=== PATIENT | female | born 1985 | race Caucasian/White ===

== ENCOUNTER 2016-07-03 10:37 | Emergency (ER) | payer MEDICAID ==
[2016-07-03 10:42] VITALS: O2SAT 99
--- NOTE | 2016-07-03 10:55 | CPEKG ---
Heart Rate: 111 RR Interval: 541 P-R Interval: 132 QRSD Interval: 78 QT Interval: 340 QTC Interval: 462 P [place]: 65 QRS [place]: 71 T Wave [place]: 18 EKG Severity - BORDERLINE ECG - EKG Impression: SINUS TACHYCARDIA EKG Impression: BORDERLINE Q WAVES IN INFERIOR LEADS EKG Impression: INFERIOR Q WAVES, PROBABLY NORMAL VARIATION Electronically Signed By: Finn Mcclain 03-Jul-2016 11:54:34
--- NOTE | 2016-07-03 11:13 | EDPHY ---
H & P Smoking Status: Former smoker Time Seen by Provider: 07/03/16 10:51 HPI/ROS: CHIEF COMPLAINT: Chest pain, shortness of breath HISTORY OF PRESENT ILLNESS: 30-year-old female presents to the emergency department by private vehicle complaining of left-sided chest pain that became more acutely worse in the last 24-48 hours. Patient states that she has had which she describes as more subtle pain in the left side of her chest for last few weeks intermittently. She feels progressively more short of breath and his especially winded when she tries to walk even just to the bathroom in her own home. She does describe pleuritic chest pain. She denies recent travel. No calf pain or swelling. She has never had this pain in the past. She does not smoke. She does not take control pills. Her last period ended last week. She does not believe that she is . She had a previous tubal ligation. She does smoke marijuana daily. REVIEW OF SYSTEMS: Constitutional: No fever, no chills. Eyes: No double or blurry vision. ENT: No sore throat. Respiratory: Shortness of breath. No cough or other URI symptoms. Cardiac: Left-sided chest pain as above Gastrointestinal: No abdominal pain, vomiting or diarrhea. Genitourinary: No dysuria. Musculoskeletal: No neck or back pain. Skin: No rashes. Neurological: No headache. (Italia Kinsey) Past Medical/Surgical History: Smokes marijuana daily (Italia Kinsey M) Social History: and lives in [place] (Italia Kinsey M) Physical Exam: General Appearance: Alert, no distress. 140/108, 99% on room air, heart rate 97 Eyes: Pupils equal and round. Extraocular motions are all intact. ENT: Mouth: Mucous membranes moist. Respiratory: No wheezing, rhonchi, or rales, lungs are clear to auscultation. Unable to reproduce pain with palpation left anterior aspect of the chest. No palpable crepitus or other bony abnormality. Cardiovascular: Regular rate and rhythm. Gastrointestinal: Abdomen is soft and nontender, no masses, no rebound or guarding, bowel sounds normal. Neurological: Alert and oriented x 3, cranial nerves II through XII grossly intact Skin: Warm and dry, no rashes. Musculoskeletal: Nontender to palpate along the cervical, thoracic or lumbar spine. Neck is supple. Extremities: Full range of motion and no peripheral edema. Psychiatric: Patient is oriented X 3, there is no agitation. (Italia Kinsey) Constitutional: Initial Vital Signs Temperature (C) 36.3 C 07/03/16 10:40 Heart Rate 97 07/03/16 10:40 Respiratory Rate 20 07/03/16 10:40 Blood Pressure 140/108 H 07/03/16 10:40 O2 Sat (%) 99 07/03/16 10:40 O2 Delivery Mode Room Air Allergies/Adverse Reactions: haloperidol [From Haldol] Allergy (Verified 07/03/16 10:40) Home Medications: Medication Instructions Recorded oxyCODONE/APAP 5/325 [Percocet 1 - 2 tab PO Q4-6PRN PRN #15 tab 07/03/16 5/325] Medical Decision Making - Diagnostics EKG Interpretation: EKG: Complete interpretation has been separately recorded in the [employer] archive. Summary impression: Sinus tachycardia, rate 111, S1Q3T3 pattern noted (Finn Mcclain) Imaging: Imaging Impressions Chest/Thorax CTA 07/03/16 11:17 Impression: 1. No evidence of pulmonary embolus using CT protocol. 2. Normal CT chest. These findings were discussed by telephone with Italia Kinsey PA-C at 1220 hrs. ED Course/Re-evaluation: 30-year-old female presents to the emergency department with left-sided chest pain and feeling short of breath. She is short of breath even with exertion. She feels that her symptoms have become acutely worse in the last 24-48 hours. I explained to the patient that I was very concerned about possible pulmonary embolism. I had explained the pros and cons of CT imaging of her chest including radiation exposure and the patient agrees with CT scan. CT pulmonary angiogram reveals no evidence of pulmonary embolism. Laboratory studies were all within normal limits including normal troponin. The patient was given oral ibuprofen since she thinks that she has an allergy to Toradol. She was also discharged home with small amount of Percocet for severe pain. She was encouraged to return if she developed worsening shortness of breath, chest pain especially with activity, or if she felt worse in any way. (Italia Kinsey) Differential Diagnosis: Chest pain including but not limited to myocardial ischemia, pulmonary embolus, chest wall pain, pleural inflammation and pulmonary infectious causes. Shortness of breath including but not limited to pulmonary infectious process, COPD, asthma, pulmonary embolus and congestive heart failure. (Italia Kinsey) - Data Points Laboratory Results: Laboratory Results 07/03/16 11:03 07/03/16 11:03 07/03/16 07/03/16 07/03/16 11:30 11:04 11:03 WBC RBC Hgb POC Hgb 17.7 gm/dL H gm/dL (12.3-15.9) Hct POC Hct 52 % H % (35.5-47.5) MCV MCH MCHC RDW Plt Count MPV Neut % (Auto) Lymph % (Auto) Stanton % (Auto) Eos % (Auto) Baso % (Auto) Nucleat RBC Rel Count Absolute Neuts (auto) Absolute Lymphs (auto) Absolute Monos (auto) Absolute Eos (auto) Absolute Basos (auto) Absolute Nucleated RBC Immature Gran % Immature Gran # D-Dimer < 0.27 ug/mLFEU ug/mLFEU (0.00-0.50) POC Sodium 141 mEq/L mEq/L (134-144) Sodium POC Potassium 5.1 mEq/L H mEq/L (3.3-5.0) Potassium POC Chloride 104 mEq/L mEq/L (96-108) Chloride Carbon Dioxide Anion Gap POC BUN 19 mg/dL mg/dL (7-23) BUN Creatinine POC Creatinine 0.7 mg/dL mg/dL (0.6-1.2) Estimated GFR Glucose POC Glucose 82 mg/dL mg/dL (70-100) Calcium Troponin I 0.021 ng/mL ng/mL (0-0.034) Beta HCG, Qual Specimen Hemolysis 07/03/16 07/03/16 07/03/16 11:03 11:03 11:03 WBC RBC Hgb POC Hgb Hct POC Hct MCV MCH MCHC RDW Plt Count MPV Neut % (Auto) Lymph % (Auto) Stanton % (Auto) Eos % (Auto) Baso % (Auto) Nucleat RBC Rel Count Absolute Neuts (auto) Absolute Lymphs (auto) Absolute Monos (auto) Absolute Eos (auto) Absolute Basos (auto) Absolute Nucleated RBC Immature Gran % Immature Gran # D-Dimer REJ POC Sodium Sodium 141 mEq/L mEq/L (134-144) POC Potassium Potassium 5.2 mEq/L mEq/L (3.5-5.2) POC Chloride Chloride 107 mEq/L mEq/L (97-110) Carbon Dioxide 25 mEq/l mEq/l (22-31) Anion Gap 9 mEq/L mEq/L (8-16) POC BUN BUN 16 mg/dL mg/dL (7-23) Creatinine 0.7 mg/dL mg/dL (0.6-1.0) POC Creatinine Estimated GFR > 60 Glucose 79 mg/dL mg/dL (70-100) POC Glucose Calcium 9.6 mg/dL mg/dL (8.5-10.4) Troponin I Beta HCG, Qual NEGATIVE Specimen Hemolysis 121 07/03/16 11:03 WBC 6.72 10^3/uL 10^3/uL (3.80-9.50) RBC 5.62 10^6/uL H 10^6/uL (4.18-5.33) Hgb 16.4 g/dL H g/dL (12.6-16.3) POC Hgb Hct 48.7 % H % (38.0-47.0) POC Hct MCV 86.7 fL fL (81.5-99.8) MCH 29.2 pg pg (27.9-34.1) MCHC 33.7 g/dL g/dL (32.4-36.7) RDW 12.9 % % (11.5-15.2) Plt Count 258 10^3/uL 10^3/uL (150-400) MPV 9.3 fL fL (8.7-11.7) Neut % (Auto) 49.7 % % (39.3-74.2) Lymph % (Auto) 42.7 % % (15.0-45.0) Stanton % (Auto) 5.4 % % (4.5-13.0) Eos % (Auto) 1.3 % % (0.6-7.6) Baso % (Auto) 0.6 % % (0.3-1.7) Nucleat RBC Rel Count 0.0 % % (0.0-0.2) Absolute Neuts (auto) 3.34 10^3/uL 10^3/uL (1.70-6.50) Absolute Lymphs (auto) 2.87 10^3/uL 10^3/uL (1.00-3.00) Absolute Monos (auto) 0.36 10^3/uL 10^3/uL (0.30-0.80) Absolute Eos (auto) 0.09 10^3/uL 10^3/uL (0.03-0.40) Absolute Basos (auto) 0.04 10^3/uL 10^3/uL (0.02-0.10) Absolute Nucleated RBC 0.00 10^3/uL 10^3/uL (0-0.01) Immature Gran % 0.3 % % (0.0-1.1) Immature Gran # 0.02 10^3/uL 10^3/uL (0.00-0.10) D-Dimer POC Sodium Sodium POC Potassium Potassium POC Chloride Chloride Carbon Dioxide Anion Gap POC BUN BUN Creatinine POC Creatinine Estimated GFR Glucose POC Glucose Calcium Troponin I Beta HCG, Qual Specimen Hemolysis Medications Given: Discontinued Medications Ibuprofen (Motrin) 600 mg PO EDNOW ONE Stop: 07/03/16 12:31 Last Admin: 07/03/16 12:30 Dose: 600 mg Ketorolac Tromethamine (Toradol) 30 mg IVP EDNOW ONE Stop: 07/03/16 12:23 Last Admin: 07/03/16 12:42 Dose: Not Given Point of Care Test Results: 07/03/16 11:04 POC Sodium 141 POC Potassium 5.1 H POC Chloride 104 POC BUN 19 POC Creatinine 0.7 POC Glucose 82 Departure - Departure Disposition: Home, Routine, Self-Care Clinical Impression: Chest wall pain Condition: Good Instructions: Chest Wall Pain (ED) Additional Instructions: You may continue ibuprofen 600 mg every 8 hours as needed for pain. Percocet for severe pain as directed. Return if you feel short of breath, if you develop worsening pain or if you feel worse in any way. Referrals: Abhishek Eng MD [Medical Doctor] - 2-3 days, if not improved (Primary care provider sheet ironworker) Prescriptions: oxyCODONE/APAP 5/325 [Percocet 5/325] 1 - 2 tab PO Q4-6PRN PRN #15 tab PRN Reason: For Moderate To Severe Pain
[2016-07-03] MEDS ORDERED: IOPAMIDOL (ISOVUE 370) 100 ML BTL IV ONE (11:19)
[2016-07-03 11:23] LABS: % IMMATURE GRANULYOCYTES 0.3 % (0.0-1.1); ABSOLUTE IMMATURE GRANULOCYTES 0.02 10^3/uL (0.00-0.10); ADD DIFF? NO; ADD MORPH? NO; ADD SCAN? NO; ATYPICAL LYMPHOCYTE FLAG 30 (0-99); FRAGMENT RBC FLAG 0 (0-99); HEMATOCRIT 48.7 % (38.0-47.0); HEMOGLOBIN 16.4 g/dL (12.6-16.3); LEFT SHIFT FLG 0 (0-99); LIPEMIA HEMOLYSIS FLAG 80 (0-99); MEAN CELL HEMOGLOBIN 29.2 pg (27.9-34.1); MEAN CELL HEMOGLOBIN CONCENTR. 33.7 g/dL (32.4-36.7); MEAN CELL VOLUME 86.7 fL (81.5-99.8); MEAN PLATELET VOLUME 9.3 fL (8.7-11.7); PLATELET CLUMPS FLAG 0 (0-99); PLATELET COUNT 258 10^3/uL (150-400); RED BLOOD CELL COUNT 5.62 10^6/uL (4.18-5.33); RED CELL DISTRIBUTION WIDTH 12.9 % (11.5-15.2)
[2016-07-03 11:46] LABS: ANION GAP 9 mEq/L (8-16); CALCIUM 9.6 mg/dL (8.5-10.4); CARBON DIOXIDE 25 mEq/l (22-31); CHLORIDE 107 mEq/L (97-110); CREATININE 0.7 mg/dL (0.6-1.0); GLOMERULAR FILTRATION RATE > 60; GLUCOSE 79 mg/dL (70-100); POTASSIUM 5.2 mEq/L (3.5-5.2); SODIUM 141 mEq/L (134-144); SPECIMEN HEMOLYSIS 121
[2016-07-03] MEDS ORDERED: KETOROLAC 30 MG/1 ML SDV IVP ONE (12:22)
[2016-07-03] MEDS ORDERED: IBUPROFEN 600 MG TAB PO ONE ×2 (12:30→12:43)
[2016-07-03 14:09] VITALS: BP 115/77; PULSE 92; RESP 14; TEMP 97.9
== END 2016-07-03 14:07 | disposition home or self-care (01) ==
DX: R07.89 Other chest pain (principal)
CPT/HCPCS: 82947-QW; J1885; Q9967

== ENCOUNTER 2016-08-18 17:33 | Emergency (ER) | payer MEDICAID ==
[2016-08-18] MEDS ORDERED: LORazepam 2 MG/ML INJ IVP ONE (17:41)
[2016-08-18] MEDS ORDERED: IPRATROPIUM/ALBUTEROL 3 ML DEYVIAL ONE (17:46)
--- NOTE | 2016-08-18 18:57 | EDPHY ---
H & P Stated Complaint: 2 weeks cough/sob Time Seen by Provider: 08/18/16 17:40 HPI/ROS: CHIEF COMPLAINT: Cough HISTORY OF PRESENT ILLNESS: 31-year-old female presents emergency department complaining of a cough and nasal congestion x2 weeks. Patient reports she lost her voice 1 week ago. Cough is worsening and she reports it is productive. She denies fevers or chills. She reports feeling fatigued. She reports a mild sore throat and fullness in her ears. No sick contacts. No chest pain. Patient is a daily smoker. Patient denies any abdominal pain, no swelling in her legs or any other complaints. REVIEW OF SYSTEMS: A comprehensive 10 point review of systems is otherwise negative aside from elements mentioned in the history of present illness. Source: Patient Exam Limitations: No limitations - Personal History LMP (Females 10-55): 22-28 Days Ago Current Tetanus/Diphtheria Vaccine: Yes Tetanus Vaccine Date: 2011 - Medical/Surgical History Hx Asthma: No Hx Chronic Respiratory Disease: No Hx Diabetes: No Hx Cardiac Disease: No Hx Renal Disease: No Hx Cirrhosis: No Hx Alcoholism: No Hx HIV/AIDS: No Hx Splenectomy or Spleen Trauma: No Other PMH: GERD, cholecystectomy, cyclical vomiting, tubal ligation, right hand surgery 12/27/13, tooth extraction 12/26/13 - Social History Smoking Status: Current every day smoker - Physical Exam Exam: General: Alert, nontoxic. ENT: Tympanic membranes clear, external auditory canal, external ear and surrounding soft tissue including over the mastoid unremarkable. Nasopharynx is injected, there is clear rhinorrhea. Oropharynx with erythema, no edema. There is no exudate. No tonsillar hypertrophy. No asymmetry. The uvula is midline. No elevation of tongue. There is no hoarseness. No drooling, patient has good control of their oral secretions. No trismus. No stridor. Cardiac: Regular rate and rhythm. Respiratory: Rhonchi bilaterally Neurological: no meningismus. Skin: No rashes. Constitutional: Initial Vital Signs Temperature (C) 36.9 C 08/18/16 17:36 Heart Rate 116 H 08/18/16 17:36 Respiratory Rate 26 H 08/18/16 17:36 Blood Pressure 126/89 H 08/18/16 17:36 O2 Sat (%) 98 08/18/16 17:36 O2 Delivery Mode Room Air Allergies/Adverse Reactions: haloperidol [From Haldol] Allergy (Verified 08/18/16 17:35) Home Medications: Medication Instructions Recorded AZITHROMYCIN [Z-PACK] 250 mg PO DAILY #6 tab 08/18/16 Albuterol [Proventil Inhaler HFA 1 - 2 puffs IH Q4H #1 mdi 08/18/16 (*)] Benzonatate [Tessalon Pearles (RX)] 100 mg PO Q8HRS PRN #20 cap 08/18/16 Fluticasone Nasal [Flonase Nasal 1 sprays NASAL DAILY #1 mdi 08/18/16 [place] (RX)] Guaifenesin/Codeine Phosphate 10 ml PO HS PRN #100 ml 08/18/16 [Guaifenesin-Codeine Liquid] Medical Decision Making - Diagnostics Imaging Results: Imaging Impressions Chest X-Ray 08/18/16 17:41 Impression: No evidence of acute cardiopulmonary abnormality. Imaging: I viewed and interpreted images myself ED Course/Re-evaluation: 31-year-old female cough x2 weeks, chest x-ray negative for pneumonia. She is a daily smoker, I will treat her with azithromycin to treat her pertussis. She has been given a prescription for an albuterol inhaler, Flonase and cough medicine. Patient is given strict return precautions for any worsening symptoms. Room air oxygen saturations are 96%, patient is afebrile with normal vital signs. Differential Diagnosis: Diagnosis considered but not limited to bronchitis, pneumonia, viral syndrome Departure - Departure Disposition: Home, Routine, Self-Care Clinical Impression: Acute bronchitis Qualifiers: Bronchitis organism: unspecified organism Qualified Code(s): J20.9 - Acute bronchitis, unspecified Condition: Good Instructions: Acute Bronchitis (ED) Additional Instructions: Use 1 puff of albuterol every 4-6 hours as needed for cough take antibiotics as prescribed Use 1 spray of Flonase in each nostril daily Take Tessalon Perles every 8 hours as needed for cough during the day Use guaifenesin with codeine at night for cough as needed Follow-up with your primary care doctor for symptoms that are not improving in the next 3-5 days, return to the emergency department for worsening symptoms, new symptoms or concerns. Referrals: Verna Estrada MD [Medical Doctor] - As per Instructions (Primary care doctor on-call) Prescriptions: Benzonatate [Tessalon Pearles (RX)] 100 mg PO Q8HRS PRN #20 cap PRN Reason: Cough, Moderate Albuterol [Proventil Inhaler HFA (*)] 1 - 2 puffs IH Q4H #1 mdi AZITHROMYCIN [Z-PACK] 250 mg PO DAILY #6 tab Fluticasone Nasal [Flonase Nasal [place] (RX)] 1 sprays NASAL DAILY #1 mdi Guaifenesin/Codeine Phosphate [Guaifenesin-Codeine Liquid] 10 ml PO HS PRN #100 ml PRN Reason: Cough, Moderate
[2016-08-18] MEDS ORDERED: BENZONATATE 100 MG CAP PO ONE (19:01)
[2016-08-18] MEDS ORDERED: IPRATROPIUM/ALBUTEROL 3 ML DEYVIAL IH ONE (19:20)
[2016-08-18 19:31] VITALS: BP 107/86; PULSE 107; RESP 18; TEMP 98.1; O2SAT 93
== END 2016-08-18 19:31 | disposition home or self-care (01) ==
DX: J20.9 Acute bronchitis, unspecified (principal); F17.200 Nicotine dependence, unspecified, uncomplicated

== ENCOUNTER 2016-12-13 07:54 | Emergency (ER) | payer MEDICAID ==
[2016-12-13] MEDS ORDERED: NS 1,000 ML IV ONE (08:02)
--- NOTE | 2016-12-13 08:02 | EDPHY ---
HPI/HX/ROS/PE/MDM Narrative: CHIEF COMPLAINT: Persistent vomiting HISTORY OF PRESENT ILLNESS: The patient is a 31 y/o female with a history of cyclic vomiting arriving via EMS complaining of persistent vomiting for the last 8 hours. She felt normal yesterday and denies recent illness. She has associated diarrhea. She normally uses ODT Zofran and marijuana to manage her symptoms, but is out of her Zofran prescription. She vomited up one dose of oral Zofran on scene, but tolerated 4mg IV Zofran en route. She declined further medications en route. She attributes her episode today to increased stress. Her last marijuana use was yesterday morning and she does not think it is related to her recurrent vomiting. Her EMS BGL was 103. No fever, chills, chest pain, shortness of breath, palpitations, diarrhea, urinary complaints, headache, lightheadedness. REVIEW OF SYSTEMS: Aside from elements discussed in the HPI, a comprehensive 10-point review of systems was reviewed and is negative. PAST MEDICAL HISTORY: Cholecystectomy, cyclic vomiting, recent right leg injury, tubal ligation, GERD, right hand surgery Prior medical records reviewed including ED visit 08/18/16 for cough. SOCIAL HISTORY: Nonsmoker. Regular marijuana use. Lives in [place]. VITAL SIGNS: Reviewed by me BP 82/58, HR 113, 36.9C GENERAL: Well-developed, well-nourished, resting comfortably in no respiratory distress. HEENT: Atraumatic. Eyes: No icterus, no injection. Mouth: dry mucous membranes. No erythema or lesions. Neck: supple with no adenopathy. LUNGS: Clear to auscultation bilaterally, no wheezes, rhonchi or rales. CARDIAC: Tachycardic rate and rhythm, no rubs, murmurs or gallops. ABDOMEN: Soft, mild epigastric tenderness without rebound or guarding, nondistended, bowel sounds normal. BACK: No CVA tenderness. EXTREMITIES: No trauma. No edema. Range of motion is normal throughout. Villanueva boot on right leg. NEURO: Alert and oriented, grossly nonfocal. Tremulous. SKIN: Warm and dry, no rash. PSYCHIATRIC: Normal mentation, no agitation. Portions of this note were transcribed by a medical insurance claims specialist. I personally performed a history, physical exam, medical decision making, and confirmed accuracy of information the transcribed note. ED Course: This is a 31 y/o female with a history of cyclic vomiting who presents with an 8 -hour history of persistent vomiting. On exam, she appears uncomfortable, has dry mucous membranes, and mild epigastric tenderness. Plan for labs, IV fluids, and antiemetics. 1L IV NS, 13.6mg IV Ketamine, and 12.5mg IV Phenergan administered. Reassessed patient. She is feeling improved, but still has some nausea. She has declined narcotics or benzodiazepines here and is allergic to Haldol. Plan for IV D5W and PO challenge. Patient was able to tolerate p.o. fluids without vomiting. Her blood pressure increased. She reports feeling improved. She would like to be discharged home. Her abdomen remained soft and nontender. MDM: Differential diagnosis of the patient's nausea and vomiting was considered including but not limited to gastroenteritis, gastritis, alcohol intoxication, withdrawal symptoms, cyclic vomiting, cannabinoid hyperemesis syndrome, intraabdominal processes including appendicitis, pancreatitis, bowel obstruction and medication side effect. - Data Points Laboratory Results: Laboratory Results 12/13/16 08:40 12/13/16 08:40 Medications Given: Discontinued Medications Sodium Chloride (Ns) 1,000 mls @ 0 mls/hr IV EDNOW ONE; Wide Open PRN Reason: Protocol Stop: 12/13/16 08:03 Last Admin: 12/13/16 08:12 Dose: 1,000 mls Dextrose/Sodium Chloride (D5w Ns) 1,000 mls @ 0 mls/hr IV CONT THIERRY PRN Reason: Wide Open Stop: 06/11/17 10:29 Last Admin: 12/13/16 10:00 Dose: 1,000 mls Ketamine HCl (Ketamine) 13.6 mg 0.2 mg/kg (13.6 mg) IVP EDNOW ONE Stop: 12/13/16 08:15 Last Admin: 12/13/16 08:23 Dose: 13.6 mg Metoclopramide HCl (Reglan Injection) 10 mg IVP EDNOW ONE Stop: 12/13/16 08:15 Last Admin: 12/13/16 08:23 Dose: 10 mg Promethazine HCl (Phenergan) 12.5 mg IVP EDNOW ONE Stop: 12/13/16 08:11 Last Admin: 12/13/16 08:13 Dose: 12.5 mg General Initial Vital Signs: Initial Vital Signs Temperature (C) 36.9 C 12/13/16 08:05 Heart Rate 108 H 12/13/16 08:05 Respiratory Rate 20 12/13/16 08:05 Blood Pressure 82/58 L 12/13/16 08:05 O2 Sat (%) 98 12/13/16 08:05 O2 Delivery Mode Room Air Allergies/Adverse Reactions: haloperidol [From Haldol] Allergy (Verified 12/13/16 08:04) Home Medications: Medication Instructions Recorded AZITHROMYCIN [Z-PACK] 250 mg PO DAILY #6 tab 08/18/16 Albuterol [Proventil Inhaler HFA 1 - 2 puffs IH Q4H #1 mdi 08/18/16 (*)] Benzonatate [Tessalon Pearles (RX)] 100 mg PO Q8HRS PRN #20 cap 08/18/16 Fluticasone Nasal [Flonase Nasal 1 sprays NASAL DAILY #1 mdi 08/18/16 [place] (RX)] Guaifenesin/Codeine Phosphate 10 ml PO HS PRN #100 ml 08/18/16 [Guaifenesin-Codeine Liquid] Ondansetron Odt [Zofran Odt 4 mg 4 mg PO Q4 #20 tab 12/13/16 (*)] Promethazine HCl [Phenergan 25mg 12.5 - 25 mg PO TID PRN #20 tab 12/13/16 (*)] Departure - Departure Disposition: Home, Routine, Self-Care Clinical Impression: Cyclical vomiting Qualifiers: Vomiting Intractability: non-intractable Nausea presence: with nausea Qualified Code(s): G43.A0 - Cyclical vomiting, not intractable Condition: Good Instructions: Acute Nausea and Vomiting (ED) Additional Instructions: 1. Take Zofran as prescribed as needed for nausea and vomiting. You also been given a prescription of Phenergan. 2. Follow up with your primary care provider in two to three days for unimproved symptoms 3. Return to the Emergency Department for severe pain, if you develop blood in your stool, if you cannot drink fluids, or for any other worsening of condition. Referrals: [facility],. [Clinic] - As per Instructions Prescriptions: Ondansetron Odt [Zofran Odt 4 mg (*)] 4 mg PO Q4 #20 tab Promethazine HCl [Phenergan 25mg (*)] 12.5 - 25 mg PO TID PRN #20 tab PRN Reason: nausea Report Scribed for: Ghazala Polanco Report Scribed by: Flower Estrella Date of Report: 12/13/16 Time of Report: 08:05
[2016-12-13 08:07] VITALS: TEMP 98.4
[2016-12-13] MEDS ORDERED: PROMETHAZINE HCL 25 MG/ML INJ IVP ONE (08:10)
[2016-12-13] MEDS ORDERED: METOCLOPRAMIDE 10 MG/2 ML VIAL IVP ONE (08:14)
[2016-12-13] MEDS ORDERED: KETAMINE 100 MG/10 ML SYR IVP ONE (08:14)
[2016-12-13 08:51] LABS: % IMMATURE GRANULYOCYTES 0.4 % (0.0-1.1); ABSOLUTE IMMATURE GRANULOCYTES 0.04 10^3/uL (0.00-0.10); ADD DIFF? NO; ADD MORPH? NO; ADD SCAN? NO; ATYPICAL LYMPHOCYTE FLAG 10 (0-99); FRAGMENT RBC FLAG 0 (0-99); HEMATOCRIT 44.6 % (38.0-47.0); HEMOGLOBIN 14.5 g/dL (12.6-16.3); LEFT SHIFT FLG 0 (0-99); LIPEMIA HEMOLYSIS FLAG 80 (0-99); MEAN CELL HEMOGLOBIN 28.9 pg (27.9-34.1); MEAN CELL HEMOGLOBIN CONCENTR. 32.5 g/dL (32.4-36.7); MEAN PLATELET VOLUME 9.6 fL (8.7-11.7); PLATELET CLUMPS FLAG 10 (0-99); PLATELET COUNT 228 10^3/uL (150-400); RED BLOOD CELL COUNT 5.01 10^6/uL (4.18-5.33); RED CELL DISTRIBUTION WIDTH 13.8 % (11.5-15.2)
[2016-12-13 09:06] LABS: ALANINE AMINOTRANSFERASE 26 IU/L (9-52); ALBUMIN 4.4 g/dL (3.5-5.0); ALKALINE PHOSPHATASE 70 IU/L (38-126); ANION GAP 16 mEq/L (8-16); ASPARTATE AMINOTRANSFERASE 27 IU/L (14-46); BILIRUBIN,TOTAL 0.6 mg/dL (0.1-1.4); BILIRUBIN-CONJUGATED 0.4 mg/dL (0.0-0.5); BILIRUBIN-UNCONJUGATED 0.2 mg/dL (0.0-1.1); CALCIUM 9.2 mg/dL (8.5-10.4); CARBON DIOXIDE 18 mEq/l (22-31); CHLORIDE 111 mEq/L (97-110); CREATININE 0.7 mg/dL (0.6-1.0); GLOMERULAR FILTRATION RATE > 60; GLUCOSE 96 mg/dL (70-100); POTASSIUM 4.1 mEq/L (3.5-5.2); SODIUM 145 mEq/L (134-144); TOTAL PROTEIN 7.1 g/dL (6.3-8.2)
[2016-12-13 10:04] VITALS: BP 97/57; PULSE 100; RESP 16; O2SAT 95
[2016-12-13 10:24] LABS: COLOR YELLOW; LEUKOCYTE ESTERASE,URINE NEGATIVE (NEGATIVE); NITRITE,URINE NEGATIVE (NEGATIVE)
[2016-12-13 10:25] LABS: MUCUS TRACE /lpf (NONE-1+)
[2016-12-13] MEDS ORDERED: D5W NS 1,000 ML IV SCH (10:30)
== END 2016-12-13 10:53 | disposition home or self-care (01) ==
LOC: EDUNIT#
DX: G43.A0 Cyclical vomiting, in migraine, not intractable (principal)
CPT/HCPCS: 96374; J2550; J2765

== ENCOUNTER 2017-02-04 11:21 | Emergency (ER) | payer MEDICAID ==
[2017-02-04] MEDS ORDERED: ONDANSETRON 4 MG/2 ML VIAL ONE (12:06)
[2017-02-04] MEDS ORDERED: NS 1,000 ML IV ONE (12:24)
[2017-02-04] MEDS ORDERED: KETAMINE 100 MG/10 ML SYR IVP ONE (12:24)
[2017-02-04] MEDS ORDERED: METOCLOPRAMIDE 10 MG/2 ML VIAL IVP ONE (12:24)
--- NOTE | 2017-02-04 12:26 | EDPHY ---
H & P Stated Complaint: N/V and abdo pain since yesterday Time Seen by Provider: 02/04/17 12:19 HPI/ROS: CHIEF COMPLAINT: Acute exacerbation of chronic intermittent vomiting HISTORY OF PRESENT ILLNESS: The patient presents to the ED with an acute exacerbation of chronic intermittent cyclic vomiting. The patient is a near daily marijuana user. She does not believe that her marijuana use is a etiology of her cyclic vomiting syndrome. She presents to the ED with a typical episode of cyclic vomiting and mild abdominal pain. The patient took Phenergan and Zofran at home prior to arrival. She reports she is allergic to Haldol. The patient was last in the emergency department in November with a similar presentation. The patient did have surgery on her right ankle 2 days ago for hardware removal. She has been taking some narcotic medications over the past 2 days. The patient denies additional acute complaints. REVIEW OF SYSTEMS: A comprehensive 10 point review of systems is otherwise negative aside from elements mentioned in the history of present illness. Source: Patient Exam Limitations: No limitations - Personal History LMP (Females 10-55): Over 28 Days Ago Current Tetanus Diphtheria and Acellular Pertussis (TDAP): Yes Tetanus Vaccine Date: 2011 - Medical/Surgical History Hx Asthma: No Hx Chronic Respiratory Disease: No Hx Diabetes: No Hx Cardiac Disease: No Hx Renal Disease: No Hx Cirrhosis: No Hx Alcoholism: No Hx HIV/AIDS: No Hx Splenectomy or Spleen Trauma: No Other PMH: GERD, cholecystectomy, cyclical vomiting, tubal ligation, right hand surgery 12/27/13, tooth extraction 12/26/13 Ankle surgery 02/01/17. - Social History Smoking Status: Former smoker Drug Use: Marijuana - Physical Exam Exam: General Appearance: Alert, retching Eyes: Pupils equal and round no pallor or injection ENT, Mouth: Mucous membranes moist Respiratory: There are no retractions, lungs are clear to auscultation Cardiovascular: Regular rate and rhythm Gastrointestinal: Abdomen is soft and nontender, no masses, bowel sounds normal Neurological: A&O, normal motor function, normal sensory exam, normal cranial nerves Skin: Warm and dry, no rashes Musculoskeletal: Neck is supple nontender Extremities: Splint to right lower extremity, clean dry and intact Constitutional: Initial Vital Signs Temperature (C) 36.4 C 02/04/17 11:26 Heart Rate 110 H 02/04/17 11:26 Respiratory Rate 20 02/04/17 11:26 Blood Pressure 117/88 H 02/04/17 11:26 O2 Sat (%) 99 02/04/17 11:26 O2 Delivery Mode Room Air Allergies/Adverse Reactions: haloperidol [From Haldol] Allergy (Verified 12/13/16 08:04) Home Medications: Medication Instructions Recorded Albuterol [Proventil Inhaler HFA 1 - 2 puffs IH Q4H #1 mdi 08/18/16 (*)] Fluticasone Nasal [Flonase Nasal 1 sprays NASAL DAILY #1 mdi 08/18/16 [place] (RX)] Ondansetron Odt [Zofran Odt 4 mg 4 mg PO Q4 #20 tab 12/13/16 (*)] Promethazine HCl [Phenergan 25mg 12.5 - 25 mg PO TID PRN #20 tab 12/13/16 (*)] traMADol 02/04/17 Medical Decision Making ED Course/Re-evaluation: The patient presents the ED with cyclic vomiting syndrome. She had an IV established. She received IV ketamine, Ativan, Reglan and 2 L of normal saline. I reviewed the patient's past medical records. The patient underwent serial examinations in the ED by myself over a 2.5 hour period. I reexamined the patient at 2:05 p.m.. She states her symptoms have entirely resolved. Her abdominal examination is benign. She would like to be discharged home from the emergency department. The patient will be given customary aftercare instructions and return precautions. Differential Diagnosis: Differential diagnosis considered includes cyclic vomiting syndrome, appendicitis, dehydration, metabolic abnormality - Data Points Medications Given: Discontinued Medications Diphenhydramine HCl (Benadryl Injection) 25 mg IVP EDNOW ONE Stop: 02/04/17 12:25 Last Admin: 02/04/17 12:33 Dose: 25 mg Sodium Chloride (Ns) 1,000 mls @ 0 mls/hr IV EDNOW ONE; Wide Open PRN Reason: Protocol Stop: 02/04/17 12:25 Last Admin: 02/04/17 12:15 Dose: 1,000 mls Ketamine HCl (Ketamine) 14.5 mg 0.2 mg/kg (14.5 mg) IVP EDNOW ONE Stop: 02/04/17 12:25 Last Admin: 02/04/17 12:33 Dose: 14.5 mg Lorazepam (Ativan Injection) 1 mg IVP EDNOW ONE Stop: 02/04/17 12:51 Last Admin: 02/04/17 12:56 Dose: 1 mg Metoclopramide HCl (Reglan Injection) 10 mg IVP EDNOW ONE Stop: 02/04/17 12:25 Last Admin: 02/04/17 12:33 Dose: 10 mg Departure - Departure Disposition: Home, Routine, Self-Care Clinical Impression: Cyclical vomiting, Dehydration Condition: Good Instructions: Acute Nausea and Vomiting in Children (ED) Additional Instructions: 1. Please follow-up with your primary care provider as scheduled. 2. Please return to the emergency department for any recurrent severe pain, intractable vomiting or other concerns. Referrals: Konrad Zuniga MD [Primary Care Provider] - As per Instructions
[2017-02-04] MEDS ORDERED: LORazepam 2 MG/ML INJ IVP ONE (12:50)
[2017-02-04 15:04] VITALS: BP 124/75; PULSE 110; RESP 18; TEMP 97.9; O2SAT 95
== END 2017-02-04 15:04 | disposition home or self-care (01) ==
DX: G43.A0 Cyclical vomiting, in migraine, not intractable (principal); E86.0 Dehydration; Z87.891 Personal history of nicotine dependence; Z90.49 Acquired absence of other specified parts of digestive tract
CPT/HCPCS: 96374; J1200; J2060; J2405; J2765

== ENCOUNTER 2017-03-25 10:02 | Emergency (ER) | payer MEDICAID ==
[2017-03-25 10:06] VITALS: TEMP 97.7
[2017-03-25] MEDS ORDERED: ONDANSETRON 4 MG/2 ML VIAL ONE (10:19)
[2017-03-25] MEDS ORDERED: ONDANSETRON 4 MG/2 ML VIAL IVP ONE (10:29)
[2017-03-25] MEDS ORDERED: NS 1,000 ML IV ONE (10:29)
[2017-03-25] MEDS ORDERED: PROMETHAZINE HCL 25 MG/ML INJ IVP ONE ×2 (10:29→12:01)
--- NOTE | 2017-03-25 10:32 | EDPHY ---
H & P Stated Complaint: N/V since 2am. Time Seen by Provider: 03/25/17 10:24 HPI/ROS: CHIEF COMPLAINT: Vomiting HISTORY OF PRESENT ILLNESS: Patient is a 31-year-old female with a history of cyclic vomiting who comes to the emergency department complaining of vomiting since 2:00 a.m.. No diarrhea. No fever. No abdominal pain. She also has a history of cholecystectomy. No other abdominal surgeries. She states that this is exactly like her previous episodes of cyclic vomiting. She takes Zofran and Phenergan at home but states that the occasionally do not provide relief. She is here requesting Zofran and Phenergan IV as well as hydration. REVIEW OF SYSTEMS: Constitutional: denies: chills, fever, recent illness, recent injury EENTM: denies: blurred vision, double vision, nose congestion Respiratory: denies: cough, shortness of breath Cardiac: denies: chest pain, irregular heart rate, lightheadedness, palpitations Gastrointestinal/Abdominal: See HPI Genitourinary: denies: dysuria, frequency, hematuria, pain Musculoskeletal: denies: joint pain, muscle pain Skin: denies: lesions, rash, jaundice, bruising Neurological: denies: headache, numbness, paresthesia, tingling, dizziness, weakness Hematologic/Lymphatic: denies: blood clots, easy bleeding, easy bruising Immunologic/allergic: denies: HIV/AIDS, transplant EXAM: GENERAL: Shaking, cold, refuses blanket HEAD: Atraumatic, normocephalic. EYES: Pupils equal round and reactive to light, extraocular movements intact, sclera anicteric, conjunctiva are normal. ENT: TMs normal, nares patent, oropharynx clear without exudates. Moist mucous membranes. NECK: Normal range of motion, supple without lymphadenopathy or JVD. LUNGS: Breath sounds clear to auscultation bilaterally and equal. No wheezes rales or rhonchi. HEART: Regular rate and rhythm without murmurs, rubs or gallops. ABDOMEN: Soft, nontender, normoactive bowel sounds. No guarding, no rebound. No masses appreciated. BACK: No CVA tenderness, no spinal tenderness, step-offs or deformities EXTREMITIES: Normal range of motion, no pitting or edema. No clubbing or cyanosis. NEUROLOGICAL: Cranial nerves II through XII grossly intact. Normal speech, normal gait. 5/5 strength, normal movement in all extremities, normal sensation PSYCH: Normal mood, normal affect. SKIN: Warm, dry, normal turgor, no visible rashes or lesions. Source: Patient Exam Limitations: No limitations - Personal History LMP (Females 10-55): 1-7 Days Ago Current Tetanus Diphtheria and Acellular Pertussis (TDAP): Yes Tetanus Vaccine Date: 2011 - Medical/Surgical History Hx Asthma: No Hx Chronic Respiratory Disease: No Hx Diabetes: No Hx Cardiac Disease: No Hx Renal Disease: No Hx Cirrhosis: No Hx Alcoholism: No Hx HIV/AIDS: No Hx Splenectomy or Spleen Trauma: No Other PMH: GERD, cholecystectomy, cyclical vomiting, tubal ligation, - Family History Significant Family History: No pertinent family hx - Social History Smoking Status: Former smoker Alcohol Use: Occasionally Drug Use: Marijuana Constitutional: Initial Vital Signs Temperature (C) 36.5 C 03/25/17 10:03 Heart Rate 114 H 03/25/17 10:03 Respiratory Rate 20 03/25/17 10:03 Blood Pressure 124/80 H 03/25/17 10:03 O2 Sat (%) 98 03/25/17 10:03 O2 Delivery Mode Room Air Allergies/Adverse Reactions: haloperidol [From Haldol] Allergy (Verified 12/13/16 08:04) Home Medications: Medication Instructions Recorded Albuterol [Proventil Inhaler HFA 1 - 2 puffs IH Q4H #1 mdi 08/18/16 (*)] Fluticasone Nasal [Flonase Nasal 1 sprays NASAL DAILY #1 mdi 08/18/16 [place] (RX)] Ondansetron Odt [Zofran Odt 4 mg 4 mg PO Q4 #20 tab 12/13/16 (*)] Promethazine HCl [Phenergan 25mg 12.5 - 25 mg PO TID PRN #20 tab 12/13/16 (*)] traMADol 02/04/17 Medical Decision Making ED Course/Re-evaluation: 12:40 p.m. the patient's symptoms have resolved. Her abdominal exam remains benign. She would like to go home. She declines further workup or testing at this time. Differential Diagnosis: Partial list of the Differential diagnosis considered include but were not limited to; cyclic vomiting, gastritis, food poisoning and although unlikely based on the history and physical exam, I also considered appendicitis, ovarian cyst, , knee tract infection. I discussed these differential diagnoses and the plan with the patient as well as the usual and expected course. The patient understands that the diagnosis is provisional and that in medicine we are not always correct and that further workup is often warranted. Usual and customary warnings were given. All of the patient's questions were answered. The patient was instructed to return to the emergency department should the symptoms at all worsen or return, otherwise to followup with the physician as we discussed. - Data Points Medications Given: Discontinued Medications Sodium Chloride (Ns) 1,000 mls @ 0 mls/hr IV EDNOW ONE; Wide Open PRN Reason: Protocol Stop: 03/25/17 10:30 Last Admin: 03/25/17 10:34 Dose: 1,000 mls Ondansetron HCl (Zofran) 4 mg IVP EDNOW ONE Stop: 03/25/17 10:30 Last Admin: 03/25/17 10:34 Dose: 4 mg Promethazine HCl (Phenergan) 12.5 mg IVP EDNOW ONE Stop: 03/25/17 10:30 Last Admin: 03/25/17 10:39 Dose: 12.5 mg Promethazine HCl (Phenergan) 12.5 mg IVP EDNOW ONE Stop: 03/25/17 12:02 Last Admin: 03/25/17 12:03 Dose: 12.5 mg Departure - Departure Disposition: Home, Routine, Self-Care Clinical Impression: Cyclical vomiting Qualifiers: Vomiting Intractability: non-intractable Nausea presence: without nausea Qualified Code(s): G43.A0 - Cyclical vomiting, not intractable Condition: Fair Instructions: Cyclic Vomiting Syndrome (ED) Referrals: Konrad Zuniga MD [Primary Care Provider] - As per Instructions
[2017-03-25 12:28] VITALS: RESP 16
[2017-03-25 13:33] VITALS: BP 108/83; PULSE 102; O2SAT 99
== END 2017-03-25 13:40 | disposition home or self-care (01) ==
DX: G43.A0 Cyclical vomiting, in migraine, not intractable (principal); E86.9 Volume depletion, unspecified; Z87.891 Personal history of nicotine dependence; Z90.49 Acquired absence of other specified parts of digestive tract; Z98.51 Tubal ligation status
CPT/HCPCS: 96374; J2405; J2550

== ENCOUNTER 2017-06-20 19:59 | Emergency (ER) | payer MEDICAID ==
[2017-06-20 20:12] VITALS: TEMP 97.9
[2017-06-20] MEDS ORDERED: NS 1,000 ML IV ONE (21:02)
[2017-06-20] MEDS ORDERED: DIAZEPAM 5 MG/ML 1 ML SYR IVP ONE (21:04)
--- NOTE | 2017-06-20 21:09 | EDPHY ---
H & P Time Seen by Provider: 06/20/17 20:34 HPI/ROS: HPI Panic attack. 31-year-old female by private vehicle with her daughter. This patient reports that about 1 hr prior to arrival she started feeling her heart rate increase and then felt very anxious with numbness and tingling throughout her whole body followed by clenching of her arms at the elbows. She denies any IV drugs or street drugs. No focal loss of sensation or weakness. No other complaints. She has had similar panic attacks in the past. ROS: Constitutional: No fever, no chills. As above. Eyes: No discharge. No changes in vision. ENT: No sore throat. No nasal congestion or rhinorrhea. Respiratory: No cough. No shortness of breath. Cardiac: No chest pain, no palpitations. Gastrointestinal: No abdominal pain, no vomiting, no diarrhea. Genitourinary: No hematuria. No dysuria or increased frequency with urination. Musculoskeletal: No back pain. No neck pain. No myalgias or arthralgias. Skin: No rashes. Neurological: No headache. No focal weakness or altered sensation. As above. Past medical history: GERD, cholecystectomy, cyclic vomiting, tubal ligation, right hand and right ankle surgery. Social history: Denies alcohol. No IV drugs or street drugs. Smokes marijuana. Here with her daughter. 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 Daughter's father is currently in [place]. Physical Exam: General Appearance: Alert, anxious. This patient is responding to questions appropriately and in full sentences. This patient appears well-hydrated and well-nourished. Head/face: Normocephalic atraumatic except for periorbital ecchymosis. Eyes: Pupils equal and round no pallor or injection. No lid edema, erythema or injection. ENT, Mouth: Mucous membranes are moist. The pharyngeal tissues are unremarkable. No edema or swelling. No asymmetry suggestive of abscess. No erythema or exudates. Respiratory: There are no retractions, lungs are clear to auscultation with good air movement bilaterally. Cardiovascular: Regular rate and rhythm. Tachycardia. No murmur appreciated. Gastrointestinal: Abdomen is soft and nontender, no masses, bowel sounds normal. No focal tenderness at McBurney's point. No Ybarra sign. Neurological: Motor sensory function is grossly intact. Cranial nerves are normal. Gait is normal. Skin: Warm and dry, no rashes. Musculoskeletal: Neck is supple and nontender. Extremities are symmetrical. All joints range without pain or impingement. Psychiatric: No agitation. No depression. Database: EKG: EKG time is 9:08 p.m.; EKG shows a narrow complex normal sinus rhythm with a ventricular rate of 91. The MT, QRS, QT intervals are within normal limits. There are no ST-T wave changes indicative of ischemic or injury pattern. No evidence of right heart strain. Interpreted by me. Imaging: Procedures: Emergency department course: IV placed. She was placed on a residential monitor. Vital signs reviewed. She will be given 1 L of IV normal saline initially over the next 1 hr. She will be given 5 mg of IV Valium for anxiety. This will be repeated as needed. 9:45 p.m., patient re-evaluated. She is feeling much better after above medications. 10:30 p.m., patient re-evaluated. Vital signs reviewed and are normal. Tachycardia has resolved. She feels comfortable going home at this time. I feel she is safe for discharge. Her presentation is consistent with a panic attack. Follow-up and return to emergency department precautions were reviewed with her. All of her questions were answered. She was discharged home in good condition with her daughter. She was discharged with a sober ride. Differential Diagnosis: The differential diagnosis on this patient includes but is not limited to anxiety reaction, panic attack. Anemia, electrolyte disorder, arrhythmia, CVA unlikely. This represents a partial list of diagnoses considered. These considerations are based on history, physical exam, past history, reassessment and diagnostic testing. Smoking Status: Former smoker Constitutional: Initial Vital Signs Temperature (C) 36.6 C 06/20/17 20:00 Heart Rate 119 H 06/20/17 20:00 Respiratory Rate 18 06/20/17 20:00 Blood Pressure 97/83 H 06/20/17 20:00 O2 Sat (%) 100 06/20/17 20:00 O2 Delivery Mode Room Air Allergies/Adverse Reactions: haloperidol [From Haldol] Allergy (Verified 06/20/17 20:12) Home Medications: Medication Instructions Recorded Ondansetron Odt [Zofran Odt 4 mg 4 mg PO Q4 #20 tab 12/13/16 (*)] Ibuprofen 06/20/17 Medical Decision Making - Data Points Laboratory Results: Laboratory Results 06/20/17 21:33 06/20/17 21:33 06/20/17 06/20/17 06/20/17 21:33 21:33 21:33 WBC TNP RBC TNP Hgb TNP Hct TNP MCV TNP MCH TNP MCHC TNP RDW TNP Plt Count TNP MPV TNP Neut % (Auto) Not Reported Lymph % (Auto) Not Reported Reagan % (Auto) Not Reported Eos % (Auto) Not Reported Baso % (Auto) Not Reported Nucleat RBC Rel Count Not Reported Absolute Neuts (auto) Not Reported Absolute Lymphs (auto) Not Reported Absolute Monos (auto) Not Reported Absolute Eos (auto) Not Reported Absolute Basos (auto) Not Reported Absolute Nucleated RBC Not Reported Immature Gran % Not Reported Immature Gran # Not Reported Sodium 139 mEq/L mEq/L (135-145) Potassium 3.7 mEq/L mEq/L (3.5-5.2) Chloride 105 mEq/L mEq/L (97-110) Carbon Dioxide 23 mEq/l mEq/l (22-31) Anion Gap 11 mEq/L mEq/L (8-16) BUN 12 mg/dL mg/dL (7-23) Creatinine 0.6 mg/dL mg/dL (0.6-1.0) Estimated GFR > 60 Glucose 88 mg/dL mg/dL (70-100) Calcium 8.8 mg/dL mg/dL (8.5-10.4) Beta HCG, Qual Pending Medications Given: Discontinued Medications Diazepam (Valium) 5 mg IVP EDNOW ONE Stop: 06/20/17 21:05 Last Admin: 06/20/17 21:15 Dose: 5 mg Sodium Chloride (Ns) 1,000 mls @ 0 mls/hr IV EDNOW ONE; Wide Open PRN Reason: Protocol Stop: 06/20/17 21:03 Last Admin: 06/20/17 21:15 Dose: 1,000 mls Departure - Departure Disposition: Home, Routine, Self-Care Clinical Impression: Panic attack Condition: Good Instructions: Panic Attack (ED) Additional Instructions: Read and follow provided instructions. Follow-up with your primary care physician in 1-2 days for re-evaluation and to discuss treatment options for your anxiety.. Return to the emergency department for worsening symptoms or other serious concerns. Referrals: Konrad Zuniga MD [Primary Care Provider] - As per Instructions
--- NOTE | 2017-06-20 21:17 | CPEKG ---
Heart Rate: 91 RR Interval: 659 P-R Interval: 132 QRSD Interval: 78 QT Interval: 384 QTC Interval: 473 P Geraldine: 66 QRS Geraldine: 68 T Wave Geraldine: 45 EKG Severity - NORMAL ECG - EKG Impression: SINUS RHYTHM Electronically Signed By: Milagros Keenan 20-Jun-2017 22:43:00
[2017-06-20 22:32] VITALS: BP 132/82; PULSE 101; RESP 16; O2SAT 98
== END 2017-06-20 22:37 | disposition home or self-care (01) ==
LOC: EDUNIT#
DX: F41.0 Panic disorder [episodic paroxysmal anxiety] (principal); E86.9 Volume depletion, unspecified; Z87.891 Personal history of nicotine dependence
CPT/HCPCS: 96374; J3360

== ENCOUNTER 2017-08-29 16:52 | Emergency (ER) | payer MEDICAID ==
[2017-08-29 17:05] VITALS: BP 142/107
--- NOTE | 2017-08-29 17:14 | EDPHY ---
H & P Smoking Status: Former smoker Time Seen by Provider: 08/29/17 17:02 HPI/ROS: CHIEF COMPLAINT: Right foot and ankle pain HISTORY OF PRESENT ILLNESS: 32-year-old female presents to the emergency department by private vehicle complaining of pain in her right foot and ankle. Patient denies any known trauma or injury. She had surgery on her right ankle September of 2016 and has had some mild chronic swelling associated with this since the surgery. She states over last 3 or 4 weeks she has had significantly more pain and now feels that it is more swollen. She is also having pain in her right foot. She feels that she is having difficulty moving her right foot. She denies any acute trauma. She is having difficulty walking. She tried calling her orthopedic surgeon that she is not able to get in to see her for several weeks. ROS: Denies numbness or tingling in her toes, pain in her right calf or right knee. Denies fevers or chills. (Italia Kinsey) Past Medical/Surgical History: Surgery right ankle September 2016, GERD, cholecystectomy, cyclical vomiting syndrome , tubal ligation (Italia Kinsey) Social History: Single (Italia Kinsey) Physical Exam: Examination of the right ankle reveals well-healed surgical incisions noted to both the medial and lateral aspect of her ankle. Diffusely tender to palpate. There is no redness or warmth noted. She has some mild diffuse swelling noted to the right ankle. She has diffuse tenderness with palpation over the right foot. There is no abrasion or puncture wounds noted. There is no redness or warmth noted to her right foot. She has limited range of motion of both her right toes in her right ankle secondary to pain. Normal sensation to light touch with normal 2 point discrimination. Strong dorsalis pedis pulse on the dorsal aspect of her right foot. (Italia Kinsey) Constitutional: Initial Vital Signs Temperature (C) 36.8 C 08/29/17 17:00 Heart Rate 108 H 08/29/17 17:00 Respiratory Rate 18 08/29/17 17:00 Blood Pressure 142/107 H 08/29/17 17:00 O2 Sat (%) 96 08/29/17 17:00 O2 Delivery Mode Room Air Allergies/Adverse Reactions: haloperidol [From Haldol] Allergy (Verified 06/20/17 20:12) Home Medications: Medication Instructions Recorded Ibuprofen 600 mg PO TID PRN #30 tablet 08/29/17 MDM/Departure - MDM Imaging: I viewed and interpreted images myself - MDM Procedures: Patient was placed in Villanueva boot and examined post application in good placement with normal SITE SPECIALIST. (Italia Kinsey) ED Course/Re-evaluation: 32-year-old female presents to the emergency department with chronic right ankle and foot pain. Clinically I do not see any evidence of cellulitis. X- rays reveal no obvious fractures. I doubt osteomyelitis. The patient will be discharged. She was placed in a Villanueva boot and given orthopedic referral. She may weightbear as tolerated. She was given a prescription for ibuprofen per her request. (Italia Kinsey) This patient was cared for primarily by the physician anesthesiologist assistant. I have reviewed and agree with the documentation and plan of care. I am the secondary supervising physician. (Laura Montague) - Depart Disposition: Home, Routine, Self-Care Clinical Impression: Chronic pain of right ankle, Chronic pain in right foot Condition: Good Instructions: Arthralgia (ED) Additional Instructions: Follow-up with orthopedic surgeon as directed next week. Villanueva boot for comfort and support. Ibuprofen 600 mg every 8 hr as needed for pain. Return to the emergency department if you developed calf pain or swelling, numbness or tingling or feelings of weakness in your legs. Prescriptions: Ibuprofen 600 mg PO TID PRN #30 tablet PRN Reason: P.r.n. Pain Referrals: Farideh James MD [Medical Doctor] - 5-7 days, call for appt. (Orthopedic surgeon on-call)
== END 2017-08-29 17:42 | disposition home or self-care (01) ==
DX: M79.671 Pain in right foot (principal); M25.571 Pain in right ankle and joints of right foot; G89.29 Other chronic pain; Z87.891 Personal history of nicotine dependence
CPT/HCPCS: L4386

== ENCOUNTER → 2017-09-16 | Outpatient (CLI) | payer MEDICAID | LOC: FIMAGING 18:55 | PROVIDERS: ATTEND Orthopaedic Surgery | DX: M79.671 Pain in right foot (principal); M71.571 Other bursitis, not elsewhere classified, right ankle and foot ==

== ENCOUNTER 2018-06-13 11:18 | Emergency (ER) | payer MEDICAID ==
--- NOTE | 2018-06-13 11:32 | EDPHY ---
H & P Stated Complaint: Slippd on ice last night, bilat low back pain c r leg paresthesias Time Seen by Provider: 06/13/18 11:32 - Personal History Current Tetanus/Diphtheria Vaccine: Yes Tetanus Vaccine Date: 2011 - Medical/Surgical History Hx Asthma: No Hx Chronic Respiratory Disease: No Hx Diabetes: No Hx Cardiac Disease: No Hx Renal Disease: No Hx Cirrhosis: No Hx Alcoholism: No Hx HIV/AIDS: No Hx Splenectomy or Spleen Trauma: No Other PMH: GERD, cholecystectomy, cyclical vomiting, tubal ligation, right hand surgery, right ankle /foot surgery. hardware in r ankle - Social History Smoking Status: Former smoker Constitutional: Initial Vital Signs Temperature (C) 36.9 C 06/13/18 11:23 Heart Rate 102 H 06/13/18 11:23 Respiratory Rate 18 06/13/18 11:23 Blood Pressure 125/83 H 06/13/18 11:23 O2 Sat (%) 97 06/13/18 11:23 O2 Delivery Mode Room Air Allergies/Adverse Reactions: haloperidol [From Haldol] Allergy (Verified 06/13/18 11:23) Home Medications: Medication Instructions Recorded Ibuprofen 600 mg PO TID PRN #30 tablet 08/29/17 HYDROcodone/APAP 10/325 [[place] 1 - 2 each PO Q4-6PRN PRN #20 tab 06/13/18 10/325] Ibuprofen [Motrin] 800 mg PO Q8 #20 tab 06/13/18 Medical Decision Making - Diagnostics Imaging Results: Imaging Impressions Lumbar Spine X-Ray 06/13/18 11:42 Impression: 8 mm anterolisthesis of L4-L5, new since 2013, with no definite acute posttraumatic findings. If pain persists and clinical suspicion warrants, consider CT or MRI. Imaging: Discussed imaging studies w/ call taker Radiologist, I viewed and interpreted images myself ED Course/Re-evaluation: CHIEF COMPLAINT: Back pain HISTORY OF PRESENT ILLNESS: The patient is a 32 y/o female with a history of a bulging spinal disk complaining of low back pain after slipping and falling on ice yesterday. The pain has not improved and she is having difficulty performing normal activities. Due to these symptoms she decided to present to the emergency department. She cannot take NSAID's as she is on Meloxicam. No fever, headache, body aches, lightheadedness, chest pain, heart palpitations, shortness of breath , cough, abdominal pain, urinary or bowel complaints, numbness, paresthesias. REVIEW OF SYSTEMS: A comprehensive 10 system review of systems is otherwise negative aside from elements mentioned in the history of present illness and medical decision making. PHYSICAL EXAM: HR, BP, O2 Sat, RR. Temp noted General Appearance: Alert, well hydrated, appropriate, and non-toxic appearing. Head: Atraumatic without scalp tenderness or obvious injury Eyes: Pupils equal, round, reactive to light and accommodation, EOMI, no trauma , no injection. Ears: Clear bilaterally, no perforation, normal landmarks Nose: Atraumatic, no rhinorrhea, clear. Throat: There is no erythema or exudates, no lesions, normal tonsils, mucus membranes moist. Neck: Supple, 2+ carotid upstroke, nontender, no lymphadenopathy. Respiratory: No retractions, no distress, no wheezes, and no accessory muscle use. Lungs are clear to auscultation bilaterally. Cardiovascular: Regular rate and rhythm, no murmurs, rubs, or gallops. Bilateral carotid, radial, dorsalis pedis, and posterior tibial pulses intact. Good capillary refill all extremities. Gastrointestinal: Abdomen is soft, nontender, non-distended, no masses, no rebound, no guarding, no peritoneal signs Back: Right central lumbar spine tenderness to palpation Musculoskeletal: Normal active ROM of all extremities, atraumatic. Neurological: Alert, appropriate, and interactive. The patient has normal DTRs and non-focal cranial nerves, motor, sensory, and cerebellar exam. Skin: No rashes, good turgor, no nodules on palpation. Past medical history: GERD, , cyclical vomiting, bulging spinal disk Past surgical history: Cholecystectomy, tubal ligation, right hand surgery, right ankle/foot surgery Family history: Social history: Lives in [place], employed at , single DIAGNOSTICS/PROCEDURES/CRITICAL CARE TIME: Lumbar x-ray: Spondylolisthesis at L5 Lumbar CT: aScute spondylolisthesis at L5 and chronic degenerative disc disease. DIFFERENTIAL DIAGNOSIS: The differential diagnosis for the patient's back pain included but was not limited to musculoskeletal pain, epidural abscess, herniated disk, spinal fracture, and intra-abdominal causes including urinary system. MEDICAL DECISION MAKING: The patient is a 32 y/o female with a history of a bulging spinal disk presenting with low back pain after slipping and falling on ice yesterday. On exam she has right central lumbar spine tenderness to palpation. Lumbar spine x- ray ordered; 10mg PO OxyIR and 600mg PO Motrin administered. 1207: I reviewed patient's lumbar x-ray which reveals spondylolisthesis at L5; lumbar CT ordered 1320: I spoke with the radiologist who reports that the patient has an acute spondylolisthesis at L5. She also has chronic degenerative disc disease. 1325: Reassessed patient and discussed imaging findings. I have advised her to follow up with a neurosurgeon and take [place] and Motrin as prescribed. Return precautions provided; patient is comfortable with this plan. - Data Points Medications Given: Discontinued Medications Ibuprofen (Motrin) 600 mg PO EDNOW ONE Stop: 06/13/18 11:48 Last Admin: 06/13/18 11:55 Dose: Not Given Oxycodone HCl (Oxycodone Ir) 5 mg PO EDNOW ONE Stop: 06/13/18 11:47 Last Admin: 06/13/18 11:55 Dose: 5 mg Oxycodone HCl (Oxycodone Ir) 5 mg PO EDNOW ONE Stop: 06/13/18 11:48 Last Admin: 06/13/18 11:56 Dose: 5 mg Departure - Departure Disposition: Home, Routine, Self-Care Clinical Impression: Spondylisthesis Qualifiers: Spinal region: lumbar Qualified Code(s): M43.16 - Spondylolisthesis, lumbar region Fall Qualifiers: Encounter type: initial encounter Qualified Code(s): W19.XXXA - Unspecified fall, initial encounter Back pain Qualifiers: Chronicity: chronic Back pain laterality: midline Sciatica presence: without sciatica Condition: Good Instructions: Back Pain (ED), Spondylolisthesis (ED) Additional Instructions: 1. Take [place] and Motrin as prescribed. 2. Followup with a commercial lawn specialist within one week. 3. Return to the emergency department for severe pain, fever, numbness, difficulty walking, change in location or nature of pain or other concerns. Referrals: Konrad Zuniga MD [Primary Care Provider] - As per Instructions Prescriptions: HYDROcodone/APAP 10/325 [[place] 10/325] 1 - 2 each PO Q4-6PRN PRN #20 tab PRN Reason: Pain, Moderate Ibuprofen [Motrin] 800 mg PO Q8 #20 tab Report Scribed for: Mina Rick Report Scribed by: Tiana Veliz Date of Report: 06/13/18 Time of Report: 11:41
[2018-06-13] MEDS ORDERED: IBUPROFEN 600 MG TAB PO ONE (11:47)
[2018-06-13] MEDS ORDERED: oxyCODONE IR 5 MG TAB PO ONE (11:47)
[2018-06-13] MEDS: oxyCODONE IR 5 MG TAB PO ONE (11:55)
[2018-06-13] MEDS ORDERED: ACETAMINOPHEN 325 MG TAB ONE (11:57)
[2018-06-13 13:24] VITALS: BP 128/78
== END 2018-06-13 13:31 | disposition home or self-care (01) ==
DX: M43.16 Spondylolisthesis, lumbar region (principal); W00.0XXA Fall on same level due to ice and snow, initial encounter; Y93.01 Activity, walking, marching and hiking; Y92.480 Sidewalk as the place of occurrence of the external cause

== ENCOUNTER 2018-07-17 11:54 | Emergency (ER) | payer MEDICAID ==
--- NOTE | 2018-07-17 12:07 | EDPHY ---
H & P Stated Complaint: CYCLICAL VOMITING Time Seen by Provider: 07/17/18 12:06 HPI/ROS: CHIEF COMPLAINT: "It's my cyclic vomiting again" HISTORY OF PRESENT ILLNESS: 33-year-old female history of cyclic vomiting syndrome via private vehicle complaining of intractable vomiting since last evening after consuming alcohol. Feels like her usual symptoms which typically resides respond to oral Zofran however has had limited response from her oral Zofran. She requests IV Haldol. Specifically mentions that she cannot tolerate IV Haldol. She is complaining of intermittent abdominal cramping, nonfocal and nonspecific any quadrant. Denies: Recent international travel, untreated water sources, recent antibiotic use, back or flank pain, urinary abnormality, chest pain, dyspnea. PRIMARY CARE PROVIDER: REVIEW OF SYSTEMS: 10 systems reviewed and negative with the exception of the elements mentioned in the history of present illness PAST MEDICAL & SURGICAL HISTORY: Cyclic vomiting SOCIAL HISTORY: Daily marijuana. Alcohol use last evening. PHYSICAL EXAM (Prior to examination, patient consented to physical exam, hands were washed and my usual and customary physical exam procedures followed) 1) GENERAL: Well-developed, well-nourished, alert and oriented. Appears uncomfortable, holding an emesis basin t, retching loudly 2) HEAD: Normocephalic, atraumatic 3) HEENT: Pupils equal, round, reactive to light bilaterally. Sclera anicteric. Nasopharynx, oropharynx, clear, no lesions. Dry mucous membranes. 4) NECK: Full range of motion, no meningeal signs. 5) LUNGS: Clear auscultation bilaterally, no wheezes, no rhonchi, no retractions. 6) HEART: Regular rate and rhythm, no murmur, no heave, no gallop. 7) ABDOMEN: No guarding, no rebound, no focal tenderness, negative McBurney's, negative Ybarra's, negative Rovsing's, negative peritoneal sign, 8) MUSCULOSKELETAL: Moving all extremities, no focal areas of tenderness, no obvious trauma. No peripheral edema or discoloration. 9) BACK: No CVA tenderness, no midline vertebral tenderness, no fluctuance, no step-off, no obvious trauma, no visual or palpable abnormality. 10) SKIN: No rash, no petechiae. 11) Psychiatric: Patient is oriented X 3, there is no agitation. DIFFERENTIAL DIAGNOSIS: My differential diagnosis includes, but is not limited to, acute appendicitis, acute cholecystitis, bowel obstruction, acute pancreatitis, ovarian torsion, ectopic , gastritis and urinary tract infection. The patient understands that this diagnosis is provisional and can never be 100% accurate. This is a partial list of diagnoses considered. These considerations are based on history, physical exam, past history and reassessment. - Personal History LMP (Females 10-55): 8-14 Days Ago Current Tetanus Diphtheria and Acellular Pertussis (TDAP): Yes Tetanus Vaccine Date: 2011 - Medical/Surgical History Hx Asthma: No Hx Chronic Respiratory Disease: No Hx Diabetes: No Hx Cardiac Disease: No Hx Renal Disease: No Hx Cirrhosis: No Hx Alcoholism: No Hx HIV/AIDS: No Hx Splenectomy or Spleen Trauma: No Other PMH: GERD, cholecystectomy, cyclical vomiting, tubal ligation, right hand surgery, right ankle /foot surgery. hardware in r ankle - Social History Smoking Status: Current some day smoker Constitutional: Initial Vital Signs Temperature (C) 36.8 C 07/17/18 11:57 Heart Rate 102 H 07/17/18 11:57 Respiratory Rate 18 07/17/18 11:57 Blood Pressure 147/107 H 07/17/18 11:57 O2 Sat (%) 98 07/17/18 11:57 O2 Delivery Mode Room Air Allergies/Adverse Reactions: haloperidol [From Haldol] Allergy (Verified 07/17/18 11:56) Home Medications: Medication Instructions Recorded Zofran 07/17/18 Medical Decision Making ED Course/Re-evaluation: 12:10 p.m.: I reviewed the patient's old medical records. She was admitted in 2013 for possible cyclic vomiting syndrome. Today in the ER, she is complaining of her symptoms consistent with her prior cyclic vomiting. She declines Haldol noting that she had adverse reaction Haldol in the past. Will administer IV fluids , Benadryl, Ativan, IV Zofran and re-evaluate. Care of patient under supervision of secondary supervising physician Dr Manning . 1:30 p.m.: Re-evaluation . She is resting comfortably states that she is feeling "much much better". Re-examined her abdomen which is soft no guarding no rebound. I am unable to elicit any abdominal pain. She is noted to have a slight elevation her lipase 334. Doubt acute pancreatitis at this time. I think the patient can be discharged home. I do not think that imaging indicated at this time. Recommend moderation with alcohol and marijuana. Recommend she follow up with her director counseling bureau. She feels comfortable being discharged. My usual and customary abdominal precautions instructions provided. - Data Points Laboratory Results: Laboratory Results 07/17/18 12:10 07/17/18 12:10 07/17/18 07/17/18 07/17/18 12:10 12:10 12:10 WBC 6.86 10^3/uL 10^3/uL (3.80-9.50) RBC 5.34 10^6/uL H 10^6/uL (4.18-5.33) Hgb 16.2 g/dL g/dL (12.6-16.3) Hct 46.7 % % (38.0-47.0) MCV 87.5 fL fL (81.5-99.8) MCH 30.3 pg pg (27.9-34.1) MCHC 34.7 g/dL g/dL (32.4-36.7) RDW 12.5 % % (11.5-15.2) Plt Count 236 10^3/uL 10^3/uL (150-400) MPV 9.5 fL fL (8.7-11.7) Neut % (Auto) 78.2 % H % (39.3-74.2) Lymph % (Auto) 14.4 % L % (15.0-45.0) [place] % (Auto) 6.1 % % (4.5-13.0) Eos % (Auto) 0.4 % L % (0.6-7.6) Baso % (Auto) 0.6 % % (0.3-1.7) Nucleat RBC Rel Count 0.0 % % (0.0-0.2) Absolute Neuts (auto) 5.36 10^3/uL 10^3/uL (1.70-6.50) Absolute Lymphs (auto) 0.99 10^3/uL L 10^3/uL (1.00-3.00) Absolute Monos (auto) 0.42 10^3/uL 10^3/uL (0.30-0.80) Absolute Eos (auto) 0.03 10^3/uL 10^3/uL (0.03-0.40) Absolute Basos (auto) 0.04 10^3/uL 10^3/uL (0.02-0.10) Absolute Nucleated RBC 0.00 10^3/uL 10^3/uL (0-0.01) Immature Gran % 0.3 % % (0.0-1.1) Immature Gran # 0.02 10^3/uL 10^3/uL (0.00-0.10) Sodium 141 mEq/L mEq/L (135-145) Potassium 3.9 mEq/L mEq/L (3.5-5.2) Chloride 107 mEq/L mEq/L (97-110) Carbon Dioxide 22 mEq/l mEq/l (22-31) Anion Gap 12 mEq/L mEq/L (6-14) BUN 12 mg/dL mg/dL (7-23) Creatinine 0.7 mg/dL mg/dL (0.6-1.0) Estimated GFR > 60 Glucose 109 mg/dL H mg/dL (70-100) Calcium 9.9 mg/dL mg/dL (8.5-10.4) Total Bilirubin 0.6 mg/dL mg/dL (0.1-1.4) Conjugated Bilirubin 0.3 mg/dL mg/dL (0.0-0.5) Unconjugated Bilirubin 0.3 mg/dL mg/dL (0.0-1.1) AST 21 IU/L IU/L (14-46) ALT 36 IU/L IU/L (9-52) Alkaline Phosphatase 63 IU/L IU/L (38-126) Total Protein 7.4 g/dL g/dL (6.3-8.2) Albumin 4.7 g/dL g/dL (3.5-5.0) Lipase 324 IU/L H IU/L (23-300) Beta HCG, Qual NEGATIVE Medications Given: Discontinued Medications Diphenhydramine HCl (Benadryl Injection) 25 mg IVP EDNOW ONE Stop: 07/17/18 12:16 Last Admin: 07/17/18 12:20 Dose: 25 mg Sodium Chloride (Ns) 1,000 mls @ 0 mls/hr IV ONCE ONE PRN Reason: Wide Open Stop: 07/17/18 12:14 Last Admin: 07/17/18 12:32 Dose: Not Given Sodium Chloride (Ns) 1,000 mls @ 0 mls/hr IV EDNOW ONE; Wide Open PRN Reason: Protocol Stop: 07/17/18 12:16 Last Admin: 07/17/18 12:19 Dose: 1,000 mls Sodium Chloride (Ns) 1,000 mls @ 0 mls/hr IV EDNOW ONE; Wide Open PRN Reason: Protocol Stop: 07/17/18 12:16 Last Admin: 07/17/18 12:20 Dose: 1,000 mls Lorazepam (Ativan Injection) 1 mg IVP EDNOW ONE Stop: 07/17/18 12:16 Last Admin: 07/17/18 12:26 Dose: 1 mg Ondansetron HCl (Zofran) 4 mg IVP EDNOW ONE Stop: 07/17/18 12:14 Last Admin: 07/17/18 12:32 Dose: Not Given Ondansetron HCl (Zofran) 4 mg IVP EDNOW ONE Stop: 07/17/18 12:16 Last Admin: 07/17/18 12:20 Dose: 4 mg Departure - Departure Disposition: Home, Routine, Self-Care Clinical Impression: Cyclical vomiting Qualifiers: Vomiting Intractability: non-intractable Nausea presence: with nausea Qualified Code(s): G43.A0 - Cyclical vomiting, not intractable Condition: Good Instructions: Acute Nausea and Vomiting (ED) Additional Instructions: Seek immediate medical attention if you develop new or worsening symptoms, if you develop fevers, chills, inability to tolerate oral intake or any other symptoms that concerns you. Please exercise moderation with alcohol and marijuana use Referrals: Konrad Zuniga MD [Primary Care Provider] - 1-2 days without fail Darwin Santiago MD [Medical Doctor] - As per Instructions
[2018-07-17] MEDS ORDERED: ONDANSETRON 4 MG/2 ML VIAL IVP ONE ×2 (12:13→12:15)
[2018-07-17] MEDS ORDERED: NS 1,000 ML IV ONE ×3 (12:13→12:15)
[2018-07-17] MEDS ORDERED: LORazepam 2 MG/ML INJ IVP ONE (12:15)
[2018-07-17 12:28] LABS: PLATELET COUNT 236 10^3/uL (150-400)
[2018-07-17 14:12] VITALS: BP 128/75
== END 2018-07-17 14:12 | disposition home or self-care (01) ==
DX: G43.A0 Cyclical vomiting, in migraine, not intractable (principal); E86.9 Volume depletion, unspecified; F10.10 Alcohol abuse, uncomplicated; F12.90 Cannabis use, unspecified, uncomplicated
CPT/HCPCS: 96374; J1200; J2060; J2405

== ENCOUNTER 2018-08-04 13:02 | Emergency (ER) | payer MEDICAID ==
[2018-08-04] MEDS ORDERED: ONDANSETRON 4 MG/2 ML VIAL IVP ONE ×2 (14:07→14:46)
[2018-08-04] MEDS ORDERED: NS 1,000 ML IV ONE ×2 (14:07→14:45)
--- NOTE | 2018-08-04 14:37 | EDPHY ---
H & P Time Seen by Provider: 08/04/18 14:35 HPI/ROS: Chief complaint. Vomiting HPI. 33-year-old female with history of cyclic vomiting syndrome. Nausea vomiting beginning today. Drink alcohol last night. Abdominal pain only when she is vomiting. No diarrhea. No chest pain or shortness of breath. She does smoke marijuana daily. She was seen July 17 for same symptoms. ROS 10 systems were reviewed and negative with the exception of the elements mentioned in the history of present illness Past Medical/Surgical History: Cyclic vomiting syndrome, GERD, cholecystectomy, tubal ligation Social History: Single, daily smoker, alcohol last night Smoking Status: Current every day smoker Physical Exam: General Appearance: Alert pleasant well-developed female mild distress vital signs significant heart rate 121 Eyes: Pupils equal and round no pallor or injection. ENT, Mouth: Mucous membranes are dry. Respiratory: There are no retractions, lungs are clear to auscultation. Cardiovascular: Regular rate and rhythm. Gastrointestinal: Abdomen is soft and nontender, no masses, bowel sounds normal. Neurological: Awake and alert, sensory and motor exams grossly normal. Skin: Warm and dry, no rashes. Musculoskeletal: Neck is supple nontender. Extremities symmetrical, full range of motion. Psychiatric: Patient is oriented X 3, there is no agitation. Constitutional: Initial Vital Signs Temperature (C) 37 C 08/04/18 13:33 Heart Rate 121 H 08/04/18 13:33 Respiratory Rate 24 H 08/04/18 13:33 O2 Sat (%) 99 08/04/18 13:33 O2 Delivery Mode Room Air Allergies/Adverse Reactions: haloperidol [From Haldol] Allergy (Verified 08/04/18 13:33) Home Medications: Medication Instructions Recorded Zofran 07/17/18 Ondansetron Odt [Zofran Odt] 4 mg PO Q4PRN PRN #4 tab 08/04/18 Promethazine HCl [Phenergan 25mg 25 mg PO Q4-6PRN PRN #10 tab 08/04/18 (*)] Medical Decision Making Procedures: IV normal saline. Zofran, Benadryl, Ativan IV ED Course/Re-evaluation: Re-evaluation 3:30 p.m. Patient improved. She is taking oral ice chips. Patient and I discussed laboratory evaluation, treatment plan including criteria for return importance of follow-up and further evaluation. She expresses understanding and agreement Differential Diagnosis: Patient was cyclic vomiting syndrome and presentation similar to previous. No evidence for acute abdomen. Mild dehydration Care Turn Over: Dr. Ritchie at 3 pm - Data Points Laboratory Results: Laboratory Results 08/04/18 14:00 08/04/18 14:00 08/04/18 08/04/18 08/04/18 14:00 14:00 14:00 WBC 6.92 10^3/uL 10^3/uL (3.80-9.50) RBC 5.65 10^6/uL H 10^6/uL (4.18-5.33) Hgb 16.5 g/dL H g/dL (12.6-16.3) Hct 49.1 % H % (38.0-47.0) MCV 86.9 fL fL (81.5-99.8) MCH 29.2 pg pg (27.9-34.1) MCHC 33.6 g/dL g/dL (32.4-36.7) RDW 12.1 % % (11.5-15.2) Plt Count 314 10^3/uL 10^3/uL (150-400) MPV 9.8 fL fL (8.7-11.7) Neut % (Auto) 77.7 % H % (39.3-74.2) Lymph % (Auto) 16.3 % % (15.0-45.0) [place] % (Auto) 4.0 % L % (4.5-13.0) Eos % (Auto) 1.0 % % (0.6-7.6) Baso % (Auto) 0.9 % % (0.3-1.7) Nucleat RBC Rel Count 0.0 % % (0.0-0.2) Absolute Neuts (auto) 5.37 10^3/uL 10^3/uL (1.70-6.50) Absolute Lymphs (auto) 1.13 10^3/uL 10^3/uL (1.00-3.00) Absolute Monos (auto) 0.28 10^3/uL L 10^3/uL (0.30-0.80) Absolute Eos (auto) 0.07 10^3/uL 10^3/uL (0.03-0.40) Absolute Basos (auto) 0.06 10^3/uL 10^3/uL (0.02-0.10) Absolute Nucleated RBC 0.00 10^3/uL 10^3/uL (0-0.01) Immature Gran % 0.1 % % (0.0-1.1) Immature Gran # 0.01 10^3/uL 10^3/uL (0.00-0.10) Sodium Pending 139 mEq/L mEq/L (135-145) Potassium Pending 4.3 mEq/L mEq/L (3.5-5.2) Chloride Pending 105 mEq/L mEq/L (97-110) Carbon Dioxide Pending 21 mEq/l L mEq/l (22-31) Anion Gap Pending 13 mEq/L mEq/L (6-14) BUN Pending 12 mg/dL mg/dL (7-23) Creatinine Pending 0.7 mg/dL mg/dL (0.6-1.0) Estimated GFR Pending > 60 Glucose Pending 101 mg/dL H mg/dL (70-100) Calcium Pending 10.3 mg/dL mg/dL (8.5-10.4) Medications Given: Discontinued Medications Diphenhydramine HCl (Benadryl Injection) 25 mg IVP EDNOW ONE Stop: 08/04/18 14:46 Last Admin: 08/04/18 15:04 Dose: 25 mg Sodium Chloride (Ns) 1,000 mls @ 0 mls/hr IV EDNOW ONE; Wide Open PRN Reason: Protocol Stop: 08/04/18 14:08 Last Admin: 08/04/18 14:09 Dose: 1,000 mls Sodium Chloride (Ns) 1,000 mls @ 0 mls/hr IV ONCE ONE; Wide Open PRN Reason: Protocol Stop: 08/04/18 14:46 Last Admin: 08/04/18 15:03 Dose: 1,000 mls Lorazepam (Ativan Injection) 1 mg IVP EDNOW ONE Stop: 08/04/18 14:46 Last Admin: 08/04/18 15:05 Dose: 1 mg Ondansetron HCl (Zofran) 4 mg IVP EDNOW ONE Stop: 08/04/18 14:08 Last Admin: 08/04/18 14:09 Dose: 4 mg Ondansetron HCl (Zofran) 4 mg IVP EDNOW ONE Stop: 08/04/18 14:47 Last Admin: 08/04/18 14:49 Dose: Not Given Departure - Departure Disposition: Home, Routine, Self-Care Clinical Impression: Cyclic vomiting syndrome Qualifiers: Vomiting Intractability: intractable Nausea presence: with nausea Qualified Code(s): G43.A1 - Cyclical vomiting, intractable Condition: Good Instructions: Cyclic Vomiting Syndrome (ED) Additional Instructions: Frequent, small sips fluids. Gradual diet advancement Zofran 1 pill every 4-6 hours as needed For nausea and vomiting. May use also Phenergan 1 pill every 6 hr as needed for nausea vomiting Return for worsening symptoms Recheck in 1 day for continuing symptoms Referrals: Konrad Zuniga MD [Primary Care Provider] - 1 day, if not improved Prescriptions: Ondansetron Odt [Zofran Odt] 4 mg PO Q4PRN PRN #4 tab PRN Reason: Nausea/Vomiting, Use 1st Promethazine HCl [Phenergan 25mg (*)] 25 mg PO Q4-6PRN PRN #10 tab PRN Reason: Nausea/Vomiting, Use 1st
[2018-08-04] MEDS ORDERED: LORazepam 2 MG/ML INJ IVP ONE (14:45)
[2018-08-04 14:52] LABS: PLATELET COUNT 314 10^3/uL (150-400)
[2018-08-04 15:53] VITALS: BP 112/68
== END 2018-08-04 15:59 | disposition home or self-care (01) ==
DX: G43.A1 Cyclical vomiting, in migraine, intractable (principal); E86.9 Volume depletion, unspecified; F17.200 Nicotine dependence, unspecified, uncomplicated
CPT/HCPCS: 96374; J1200; J2060; J2405

== ENCOUNTER 2018-08-05 18:13 | Inpatient (IN) | payer MEDICAID ==
[2018-08-05] MEDS ORDERED: NS 1,000 ML IV ONE ×2 (18:28)
[2018-08-05] MEDS ORDERED: NS 50 ML BAG IV ONE (19:24)
[2018-08-05] MEDS: PROMETHAZINE HCL 25 MG/ML INJ IVP ONE ×2 (19:29→19:58)
[2018-08-05 19:31] LABS: PLATELET COUNT 284 10^3/uL (150-400)
[2018-08-05] MEDS ORDERED: LORazepam 2 MG/ML INJ IVP ONE (20:06)
[2018-08-05] MEDS ORDERED: PROMETHAZINE 25MG SUPP PREPK#4 BTL TAKEHOME ONE (21:48)
--- NOTE | 2018-08-05 21:48 | EDPHY ---
H & P Stated Complaint: abd pain Time Seen by Provider: 08/05/18 18:20 HPI/ROS: Chief complaint: Abdominal pain with nausea and vomiting History of present illness: This is a 33-year-old female with a history of cyclic vomiting syndrome who presents to the emergency department for abdominal pain with nausea and vomiting. She was seen in this emergency department yesterday for similar. She reports symptoms persist. She is using Zofran at home as prescribed but it is not helping. She complains of continued diffuse abdominal cramping and persistent nausea and vomiting. She is unable to tolerate anything orally. She denies other associated signs or symptoms including no fevers, no diarrhea, no urinary symptoms. Review of systems: A 10 point review of systems was obtained and other than described above was negative. - Personal History LMP (Females 10-55): 22-28 Days Ago Current Tetanus Diphtheria and Acellular Pertussis (TDAP): Yes Tetanus Vaccine Date: 2011 - Medical/Surgical History Hx Asthma: No Hx Chronic Respiratory Disease: No Hx Diabetes: No Hx Cardiac Disease: No Hx Renal Disease: No Hx Cirrhosis: No Hx Alcoholism: No Hx HIV/AIDS: No Hx Splenectomy or Spleen Trauma: No Other PMH: GERD, cholecystectomy, cyclical vomiting, tubal ligation, right hand surgery, right ankle /foot surgery. hardware in r ankle, - Social History Smoking Status: Current every day smoker - Physical Exam Exam: General Appearance: Alert, unwell but nontoxic appearing. Eyes: Pupils equal and round no pallor or injection. ENT, Mouth: Mucous membranes moist. Respiratory: There are no retractions, lungs are clear to auscultation. Cardiovascular: Regular rate and rhythm. Gastrointestinal: Bowel sounds are present. Abdomen is soft and nondistended. Diffuse tenderness. Neurological: Alert and oriented. Skin: Warm and dry, no rashes. Musculoskeletal: Neck is supple non tender. Extremities are symmetrical, full range of motion. Psychiatric: Patient is oriented X 3, there is no agitation. Constitutional: Initial Vital Signs Temperature (C) 37.1 C 08/05/18 18:20 Heart Rate 72 08/05/18 18:20 Respiratory Rate 18 08/05/18 18:20 Blood Pressure 111/74 08/05/18 18:20 O2 Sat (%) 99 08/05/18 18:20 O2 Delivery Mode Room Air Allergies/Adverse Reactions: haloperidol [From Haldol] Allergy (Verified 08/04/18 13:33) Home Medications: Medication Instructions Recorded Ondansetron Odt [Zofran Odt] 4 mg PO Q4PRN PRN #4 tab 08/04/18 Promethazine HCl [Phenergan 25mg 25 mg PO Q4-6PRN PRN #10 tab 08/04/18 (*)] Meloxicam 08/05/18 Promethazine HCl [Phenergan 25 mg OR Q6 #6 suppr 08/05/18 Rectal] Medical Decision Making ED Course/Re-evaluation: Patient seen under the supervision of my secondary supervising physician Dr. Fernando Ritchie. Patient presents to the emergency department with continued abdominal pain with nausea and vomiting. She was seen yesterday for similar. Initially she was IV hydrated and treated with Phenergan and Benadryl. She was feeling better but failed a PO challenge and threw up. She was subsequently given Ativan, felt better but failed a po challenge. She was given Zofran. Again she started to feel better but when she tried to get up she again profusely vomited. At this time I do not believe she will be able to control symptoms at home. She therefore will be admitted to the hospitalist service under the care of Dr. Diallo. Differential Diagnosis: Included but not limited to cyclic vomiting syndrome, marijuana use, gastritis, gastroenteritis, delayed gastric in - Data Points Laboratory Results: Laboratory Results 08/05/18 18:13 08/05/18 18:13 08/05/18 08/05/18 08/05/18 18:13 18:13 18:13 WBC 7.54 10^3/uL 10^3/uL (3.80-9.50) RBC 5.81 10^6/uL H 10^6/uL (4.18-5.33) Hgb 17.1 g/dL H g/dL (12.6-16.3) Hct 53.4 % H % (38.0-47.0) MCV 91.9 fL fL (81.5-99.8) MCH 29.4 pg pg (27.9-34.1) MCHC 32.0 g/dL L g/dL (32.4-36.7) RDW 12.2 % % (11.5-15.2) Plt Count 284 10^3/uL 10^3/uL (150-400) MPV 11.7 fL fL (8.7-11.7) Neut % (Auto) 77.0 % H % (39.3-74.2) Lymph % (Auto) 16.3 % % (15.0-45.0) [place] % (Auto) 4.5 % % (4.5-13.0) Eos % (Auto) 1.5 % % (0.6-7.6) Baso % (Auto) 0.4 % % (0.3-1.7) Nucleat RBC Rel Count 0.0 % % (0.0-0.2) Absolute Neuts (auto) 5.81 10^3/uL 10^3/uL (1.70-6.50) Absolute Lymphs (auto) 1.23 10^3/uL 10^3/uL (1.00-3.00) Absolute Monos (auto) 0.34 10^3/uL 10^3/uL (0.30-0.80) Absolute Eos (auto) 0.11 10^3/uL 10^3/uL (0.03-0.40) Absolute Basos (auto) 0.03 10^3/uL 10^3/uL (0.02-0.10) Absolute Nucleated RBC 0.00 10^3/uL 10^3/uL (0-0.01) Immature Gran % 0.3 % % (0.0-1.1) Immature Gran # 0.02 10^3/uL 10^3/uL (0.00-0.10) Platelet Estimate ADEQUATE (ADEQ) Sodium 138 mEq/L mEq/L (135-145) Potassium 4.3 mEq/L mEq/L (3.5-5.2) Chloride 105 mEq/L mEq/L (97-110) Carbon Dioxide 18 mEq/l L mEq/l (22-31) Anion Gap 15 mEq/L H mEq/L (6-14) BUN 12 mg/dL mg/dL (7-23) Creatinine 0.7 mg/dL mg/dL (0.6-1.0) Estimated GFR > 60 Glucose 105 mg/dL H mg/dL (70-100) Calcium 10.7 mg/dL H mg/dL (8.5-10.4) Phosphorus 1.8 mg/dL L mg/dL (2.5-4.5) Beta HCG, Qual NEGATIVE Specimen Hemolysis 160 Medications Given: Discontinued Medications Diphenhydramine HCl (Benadryl Injection) 25 mg IVP EDNOW ONE Stop: 08/05/18 19:23 Last Admin: 08/05/18 19:29 Dose: 25 mg Sodium Chloride (Ns) 1,000 mls @ 0 mls/hr IV EDNOW ONE; Wide Open PRN Reason: Protocol Stop: 08/05/18 18:29 Last Admin: 08/05/18 18:58 Dose: 1,000 mls Sodium Chloride (Ns) 1,000 mls @ 0 mls/hr IV EDNOW ONE; Wide Open PRN Reason: Protocol Stop: 08/05/18 18:29 Last Admin: 08/05/18 18:58 Dose: 1,000 mls Lorazepam (Ativan Injection) 1 mg IVP EDNOW ONE Stop: 08/05/18 20:07 Last Admin: 08/05/18 20:10 Dose: 1 mg Ondansetron HCl (Zofran) 8 mg IVP EDNOW ONE Stop: 08/05/18 22:12 Last Admin: 08/05/18 22:14 Dose: 8 mg Promethazine HCl (Phenergan) 25 mg IVP EDNOW ONE Stop: 08/05/18 19:23 Last Admin: 08/05/18 19:58 Dose: 25 mg Promethazine HCl (Phenergan 25mg Supp Prepack#4) 1 btl TAKEHOME EDNOW ONE Stop: 08/05/18 21:49 Last Admin: 08/05/18 22:54 Dose: 1 btl Departure - Departure Disposition: [facility] Inpatient Acute Clinical Impression: Abdominal pain Qualifiers: Abdominal location: generalized Qualified Code(s): R10.84 - Generalized abdominal pain Vomiting Qualifiers: Vomiting type: unspecified Vomiting Intractability: intractable Nausea presence : with nausea Qualified Code(s): R11.2 - Nausea with vomiting, unspecified Condition: Fair
[2018-08-05] MEDS ORDERED: ONDANSETRON 4 MG/2 ML VIAL IVP ONE (22:11)
[2018-08-05] MEDS ORDERED: PROMETHAZINE HCL 25 MG/ML INJ IVP PRN (23:05)
[2018-08-05] MEDS ORDERED: ONDANSETRON DISINTEGRATING 4 MG TAB PO PRN (23:05)
[2018-08-05] MEDS ORDERED: ONDANSETRON 4 MG/2 ML VIAL IVP PRN (23:05)
[2018-08-05] MEDS ORDERED: FAMOTIDINE 20 MG/NACL 50 ML IV ONE (23:10)
[2018-08-05] MEDS: LR 1,000 ML IV SCH (23:53)
[2018-08-06] MEDS: CAPSAICIN 0.025% CREAM TP SCH ×4 (00:45→21:42)
--- NOTE | 2018-08-06 01:20 | PDGENHP ---
History and Physical - Chief Complaint Nausea, vomiting - History of Present Illness 33 yo F w/ hx of fibromyalgia and cyclic vomiting syndrome presents with nausea and vomiting. The patient's current flare started three days ago. She was seen in the ED yesterday, treated with hydration and anti-emetics, and discharged home. She felt better initially but her symptoms eventually returned. She describes persistent nausea with frequent vomiting and diffuse abdominal pain. She tells me these are the usual symptoms for her CVS flares. She has not had a flare in about a year. She has had numerous flares over the last several years starting 4 or 5 years ago. She smokes small amounts of marijuana but has not smoked in a week. Her laboratory work-up and abdominal exam are reassuring. She is being admitted for hydration and symptom control. Case discussed with ED CLARI Salcedo; records reviewed and summarized above. History Information - Allergies/Home Medication List Allergies/Adverse Reactions: haloperidol [From Haldol] Allergy (Verified 08/04/18 13:33) Home Medications: Meloxicam 08/05/18 [Last Taken Unknown] I have personally reviewed and updated: family history, medical history - Past Medical History fibromyalgia Additional medical history: CVS - Surgical History Reports: cholecystectomy Additional surgical history: BTL - Family History Positive for: cancer, CAD - Social History Smoking Status: Current every day smoker Review of Systems Review of Systems: ROS: 10pt was reviewed & negative except for what was stated in HPI & below Physical Exam Physical Exam: Temp Pulse Resp BP Pulse Ox 37.4 C 54 L 16 110/67 98 08/06/18 00:30 08/06/18 00:30 08/06/18 00:30 08/06/18 00:30 08/06/18 00:30 Constitutional: appears nourished, uncomfortable Eyes: PERRL, EOMI Ears, Nose, Mouth, Throat: moist mucous membranes, no oral mucosal ulcers Cardiovascular: regular rate and rhythym, no murmur, rub, or gallop Respiratory: no respiratory distress, clear to auscultation Gastrointestinal: normoactive bowel sounds, tenderness (Diffuse), No guarding, No rebound, No distension Skin: warm, normal color Musculoskeletal: full muscle strength, no muscle tenderness Neurologic: AAOx3, CN II-XII Intact Psychiatric: interacting appropriately, not anxious Lab Data & Imaging Review 08/05/18 18:13 08/05/18 18:13 WBC 7.54 10^3/uL (3.80-9.50) 08/05/18 18:13 RBC 5.81 10^6/uL (4.18-5.33) H 08/05/18 18:13 Hgb 17.1 g/dL (12.6-16.3) H 08/05/18 18:13 Hct 53.4 % (38.0-47.0) H 08/05/18 18:13 MCV 91.9 fL (81.5-99.8) 08/05/18 18:13 MCH 29.4 pg (27.9-34.1) 08/05/18 18:13 MCHC 32.0 g/dL (32.4-36.7) L 08/05/18 18:13 RDW 12.2 % (11.5-15.2) 08/05/18 18:13 Plt Count 284 10^3/uL (150-400) 08/05/18 18:13 MPV 11.7 fL (8.7-11.7) 08/05/18 18:13 Neut % (Auto) 77.0 % (39.3-74.2) H 08/05/18 18:13 Lymph % (Auto) 16.3 % (15.0-45.0) 08/05/18 18:13 [place] % (Auto) 4.5 % (4.5-13.0) 08/05/18 18:13 Eos % (Auto) 1.5 % (0.6-7.6) 08/05/18 18:13 Baso % (Auto) 0.4 % (0.3-1.7) 08/05/18 18:13 Nucleat RBC Rel Count 0.0 % (0.0-0.2) 08/05/18 18:13 Absolute Neuts (auto) 5.81 10^3/uL (1.70-6.50) 08/05/18 18:13 Absolute Lymphs (auto) 1.23 10^3/uL (1.00-3.00) 08/05/18 18:13 Absolute Monos (auto) 0.34 10^3/uL (0.30-0.80) 08/05/18 18:13 Absolute Eos (auto) 0.11 10^3/uL (0.03-0.40) 08/05/18 18:13 Absolute Basos (auto) 0.03 10^3/uL (0.02-0.10) 08/05/18 18:13 Absolute Nucleated RBC 0.00 10^3/uL (0-0.01) 08/05/18 18:13 Immature Gran % 0.3 % (0.0-1.1) 08/05/18 18:13 Immature Gran # 0.02 10^3/uL (0.00-0.10) 08/05/18 18:13 Platelet Estimate ADEQUATE (ADEQ) 08/05/18 18:13 Sodium 138 mEq/L (135-145) 08/05/18 18:13 Potassium 4.3 mEq/L (3.5-5.2) 08/05/18 18:13 Chloride 105 mEq/L (97-110) 08/05/18 18:13 Carbon Dioxide 18 mEq/l (22-31) L 08/05/18 18:13 Anion Gap 15 mEq/L (6-14) H 08/05/18 18:13 BUN 12 mg/dL (7-23) 08/05/18 18:13 Creatinine 0.7 mg/dL (0.6-1.0) 08/05/18 18:13 Estimated GFR > 60 08/05/18 18:13 Glucose 105 mg/dL (70-100) H 08/05/18 18:13 Calcium 10.7 mg/dL (8.5-10.4) H 08/05/18 18:13 Phosphorus 1.8 mg/dL (2.5-4.5) L 08/05/18 18:13 Beta HCG, Qual NEGATIVE 08/05/18 18:13 Specimen Hemolysis 160 08/05/18 18:13 Assessment & Plan Assessment: 33 yo F w/ hx of fibromyalgia and cyclic vomiting syndrome presents with acute flare. Plan: 1. Cyclic vomiting syndrome with acute flare - Patient presents with 3 days of persistent symptoms. She was seen in the ED yesterday and discharged after treatment, but her symptoms returned. She has had numerous flares over the course of the last 4-5 years. Her abdominal exam and laboratory work-up are reassuring. - Admit for observation - Clear liquid diet, ADAT - mIVF(LR), anti-emetics PRN - Will trial capsaicin cream 2. Fibromyalgia - Takes meloxicam PRN as an outpatient. Diet - Clears, ADAT Code - Full Ppx - Low risk, ambulate TID Dispo - Admit under observation status
[2018-08-06] MEDS: LORazepam 2 MG/ML INJ IVP PRN ×2 (05:10→22:58)
[2018-08-06 05:46] LABS: PLATELET COUNT 244 10^3/uL (150-400)
--- NOTE | 2018-08-06 10:43 | ASDISCHSUM ---
Discharge Information Plan Status:Home with No Needs Medically Cleared to Leave: Discharge Date: D/C Disposition:Home, Routine, Self-Care ADT D/C Disposition: Projected Discharge Date: Transportation at D/C: Discharge Delay Reason: Follow-Up Date: Discharge Slot: Final Diagnosis: Placement Information Patient Contact Information Contact Name:HEAVEN Relationship: Address:[address] Work Phone: City:[facility] Phone: State/Zip Code:[place] [address] Email: Financial Information Financial Class:Medicaid Primary Plan Desc:[employer] Primary Plan Number:[id number] Secondary Plan Desc: Secondary Plan Number: Assessment Information LACE LACE Length of stay for Answers: Less than 1 day current admission Acuity / Level of Answers: No Care: Did the patient have an inpatient admission? Comorbidities - select Answers: Any tumor (including all that apply lymphoma or leukemia) # of Emergency department Answers: 1-2 visits in the last 6 months Social determinants Answers: Mental health diagnosis (anxiety, depression, pers onality disorders, etc.) Score: 6 Date Signed: 08/06/2018 10:42 AM Electronically Signed By:Jada Dumont Intervention Information
[2018-08-06] MEDS ORDERED: POTASSIUM CL 10 MEQ TAB PO ONE ×4 (11:29→22:00)
[2018-08-06] MEDS ORDERED: MAGNESIUM SULF 1 GM/DEXTROSE 100 ML IV ONE (13:05)
[2018-08-06] MEDS ORDERED: MAGNESIUM SULF 2 GM/WATER 50 ML IV ONE (13:31)
--- NOTE | 2018-08-06 13:59 | HOSPPROG ---
Hospitalist Progress Note Assessment/Plan: #Cyclic N/V: not improved. THC contributing -DC Zofran/Phenergan with prolonged Qtc #Bradycardia: c/o dizziness, but not eating much either -telemetry #Hypokalemia/hypomagnesium: replete #Mild acidosis: due to decrease PO. Improved with fluids Diet: clears DVT: low risk Inpatient admission for ongoing N/V. Subjective: still not tolerating PO. +N/V Objective: Vital Signs Temp Pulse Resp BP Pulse Ox 37.1 C 47 L 15 115/71 99 08/06/18 12:30 08/06/18 12:30 08/06/18 12:30 08/06/18 12:30 08/06/18 12:30 Laboratory Results 08/06/18 04:35 08/06/18 04:35 08/05/18 08/06/18 08/07/18 05:59 05:59 05:59 Intake Total 2200 Output Total 600 Balance 2200 -600 - Time Spent With Patient Time Spent with Patient: greater than 35 minutes Time Spent with Patient: Greater than 35 minutes spent on this patients care, greater than 50% of time spent counseling, educating, and coordinating care regarding the above mentioned plan. - Physical Exam Constitutional: uncomfortable Eyes: PERRL Ears, Nose, Mouth, Throat: moist mucous membranes Cardiovascular: bradycardia Respiratory: no respiratory distress Gastrointestinal: normoactive bowel sounds Genitourinary: no bladder fullness Skin: warm Musculoskeletal: full muscle strength Neurologic: AAOx3, CN II-XII Intact Psychiatric: interacting appropriately ICD10 Worksheet Patient Problems: Problems Problem Status Onset Abdominal pain Acute Vomiting Acute Cyclical vomiting Acute
[2018-08-06] MEDS: ACETAMINOPHEN 325 MG TAB PO PRN (19:51)
[2018-08-06] MEDS: LR 1,000 ML IV SCH (19:58)
[2018-08-06] MEDS ORDERED: PROTOCOL POTASSIUM 1 DOSE MISC PRN (22:02)
[2018-08-06] MEDS ORDERED: PROTOCOL MAGNESIUM 1 DOSE IV PRN (22:24)
[2018-08-06] MEDS ORDERED: D50W 25 GM/50 ML VIAL IVP PRN (23:20)
[2018-08-07] MEDS: ACETAMINOPHEN 325 MG TAB PO PRN ×2 (02:48→17:31)
[2018-08-07] MEDS: LORazepam 2 MG/ML INJ IVP PRN ×2 (02:48→22:35)
--- NOTE | 2018-08-07 07:04 | CPEKG ---
Test Reason : OPEN Blood Pressure : / mmHG Vent. Rate : 046 BPM Atrial Rate : 045 BPM P-R Int : 125 ms QRS Dur : 086 ms QT Int : 499 ms P-R-T Axes : 058 074 036 degrees QTc Int : 437 ms Sinus bradycardia Borderline T abnormalities, anterior leads Confirmed by Lang Rosario ([id number]) on 08/07/2018 7:03:49 AM Referred By: Jeffry Diallo Confirmed By:Lang Rosario
--- NOTE | 2018-08-07 07:04 | CPEKG ---
Test Reason : OPEN Blood Pressure : / mmHG Vent. Rate : 047 BPM Atrial Rate : 046 BPM P-R Int : 115 ms QRS Dur : 084 ms QT Int : 497 ms P-R-T Axes : 050 063 037 degrees QTc Int : 440 ms Sinus bradycardia Confirmed by Lang Rosario ([id number]) on 08/07/2018 7:04:25 AM Referred By: Jeffry Diallo Confirmed By:Lang Rosario
[2018-08-07] MEDS ORDERED: POTASSIUM CL 10 MEQ TAB PO ONE ×3 (08:07→09:15)
[2018-08-07] MEDS ORDERED: MAGNESIUM SULF 1 GM/DEXTROSE 100 ML IV ONE (09:30)
[2018-08-07] MEDS: CAPSAICIN 0.025% CREAM TP SCH ×2 (10:34→16:48)
--- NOTE | 2018-08-07 11:15 | HOSPPROG ---
Hospitalist Progress Note Assessment/Plan: #Cyclic N/V: not improved. THC contributing -IV antiemetics #Diarrhea: GI PCR tp r/o bacterial infecton #Abd pain: lipase mildly up >700; check abd U/S. Cont IVFs #Bradycardia: sinus arrhythmia on EKG. No intervention warranted #Hypokalemia/hypomagnesium: replete #Mild acidosis: due to decrease PO. Improved with fluids Diet: clears DVT: low risk Inpatient admission for ongoing N/V. Subjective: still N/V. left-sided abd pain Objective: Vital Signs Temp Pulse Resp BP Pulse Ox 36.8 C 40 L 16 137/80 H 97 08/07/18 08:00 08/07/18 08:00 08/07/18 08:00 08/07/18 08:00 08/07/18 08:00 Laboratory Results 08/06/18 04:35 08/07/18 04:20 08/06/18 08/07/18 08/08/18 05:59 05:59 05:59 Intake Total 2200 450 Output Total 600 Balance 2200 -150 - Time Spent With Patient Time Spent with Patient: greater than 35 minutes Time Spent with Patient: Greater than 35 minutes spent on this patients care, greater than 50% of time spent counseling, educating, and coordinating care regarding the above mentioned plan. - Physical Exam Constitutional: other (sleeping) Eyes: PERRL Cardiovascular: bradycardia Respiratory: no respiratory distress Gastrointestinal: normoactive bowel sounds, tenderness (mild epigastric TTP), No guarding, No rebound, No distension Skin: warm Musculoskeletal: full muscle strength Neurologic: AAOx3, CN II-XII Intact Psychiatric: flat affect ICD10 Worksheet Patient Problems: Problems Problem Status Onset Abdominal pain Acute Vomiting Acute Cyclical vomiting Acute
--- NOTE | 2018-08-07 14:48 | ASMTCMCOM ---
CM Note CM Note Notes: Plan of care reviewed in interdisciplinary rounds. Patient is 33 year old female admitted via ED for c/o nausea and vomiting. HX significant for cyclic vomiting. On clear liquids. No identifiable needs at this time. CM available should needs arise. Plan: Dc to home with family support when medically stable. Date Signed: 08/07/2018 02:47 PM Electronically Signed By:Krissy Leonardo RN
--- NOTE | 2018-08-07 15:18 | PDMN ---
Medical Necessity Medical [place] [facility] [place] [place], A-1 day: 33 yo w/ hx fibromyalgia and cyclic vomiting syndrome presents w/ n/v. Initially OBS for IVF and workup but pt not improved after OBS care. Zofran and phenergen need to be d/c'd due to prolonged Qtc, pt bradycardic requiring cont tele monitoring. Pt still not pam PO. Pt developed hypokalemia and hypo magnesia requiring IV replacement. Pt requires additional MN for ongoing management and tx of above. Change to IP status 08/06/18@1355 per MD order.
[2018-08-07] MEDS: LOPERAMIDE HCL 2 MG CAP PO PRN (17:32)
[2018-08-07] MEDS ORDERED: ATROPINE SULFATE 1 MG/ML VIAL IVP PRN (17:43)
[2018-08-07] MEDS: POTASSIUM Cl (KCl) 20 MEQ in D5W LR 1,000 ML IV SCH (20:05)
[2018-08-07] MEDS: ONDANSETRON 4 MG/2 ML VIAL IVP PRN (20:34)
[2018-08-07] MEDS ORDERED: DICLOFENAC SODIUM 1% 100 GM GEL TP PRN (20:48)
[2018-08-08] MEDS ORDERED: diphenhydrAMINE 25 MG CAP PO PRN (00:31)
[2018-08-08] MEDS: CAPSAICIN 0.025% CREAM TP SCH ×2 (01:39→11:43)
[2018-08-08] MEDS ORDERED: POTASSIUM CL 10 MEQ TAB PO ONE (09:18)
[2018-08-08] MEDS ORDERED: MAGNESIUM SULF 1 GM/DEXTROSE 100 ML IV ONE (09:19)
--- NOTE | 2018-08-08 11:38 | ECHO ---
[email or web address] [address] [address] Main: [phone] Echocardiography Examination Transthoracic Name: ADA DOTSON MR#: [id number] Study Date: 08/08/2018 Study Time: 09:44 AM Date of : 1985 Age: 33 year(s) Height: 172.7 cm (68 in.) Weight: 65.32 kg (144 lb.) BSA: 1.78 m2 Gender: Female Examination: Echo Contrast: Image Quality: Adequate Rhythm: Sinus bradycardia Heart Rate: 43 bpm BP: 150 mmHg/77 mmHg Indication: bradycardia, pre-syncope Procedure Staff Referring Physician: Folder Seamer Automatic: [facility] Reading Physician: lGoria Case MD Requesting Provider: Ordering Physician: Gloria Case MD Indication: bradycardia, pre-syncope Measurements Chambers AV/MV Label Value Normal Value Label Value Normal Value LVOT Vmax 0.91 m/s (0.7m/s - 1.1m/s) AV PGmax 7 mmHg LVOTd 1.8 cm (1.8cm - 2cm) AV Vmax 1.29 m/s LVOT VTI 21.6 cm (18cm - 22cm) JOE (Vmax) 1.8 cm2 LVDd, 2D 4.7 cm (3.9cm - 5.3cm) MV E Vmax 0.69 m/s LVDs, 2D 3 cm (2.1cm - 4cm) MV A Vmax 0.29 m/s IVSd, 2D 1 cm (0.6cm - 1.1cm) MV E/A 2.38 LVPWd, 2D 0.9 cm MV E/E' lateral 5.4 LVEF, BP 55 % (55% - 70%) MV E/E' septal 7.6 (0.6 - 2.6) LVEF, 2D 66 % (54% - 74%) MV DT 225 ms LVOT PGmean 2 mmHg MV E' septal 0.09 m/s LVOT Vmean 0.63 m/s MV VTI 15.1 cm RVDd, 2D 3.1 cm (1.9cm - 3.8cm) MVA D (continuity eq.) 3.6 cm2 TAPSE 2 cm MV PGmax 2 mmHg LA Volume, BP 46 ml (22ml - 52ml) MV PGmean 0 mmHg LADs, 2D 3.8 cm (2.7cm - 3.8cm) MV Sidra 2.8 cm LAESV index, BP 25.8 ml/m2 MR Vena Contracta 0.4 cm RA Area 15 cm2 MR Reg. Volume 24 ml Additional Vessels MR Reg. Fraction 26 % Label Value Normal Value MR Vmax 4.93 m/s Patient: ADA DOTSON Study Date: 08/08/2018 Page 1 of 3 09:44 AM AoAsc 2.6 cm MR VTI 202 cm AoRoot, 2D 2.6 cm (1.4cm - 2.6cm) MR (ERO) 0.12 cm2 MV E' lateral 0.13 m/s MR PISA Radius 0.5 cm MV E/E' mean 6.27 MR PISA Alias V. 38.5 cm/s MV E' mean 0.11 m/s TV/PV Label Value Normal Value RA Pressure 5 mmHg RVSP 29 mmHg TR Pmax 24 mmHg TR Vmax 2.43 m/s PV PGmax 3 mmHg PV Vmax, Caliper 0.81 m/s (0.6m/s - 0.9m/s) Conclusions 1. The left ventricle is normal size and systolic function. Ejection fraction is 55%. No regional wall motion abnormalities. Normal diastolic function. 2. the right ventricle is normal in size and systolic function. 3. Normal biatrial size. 4. Kcrs-qu-owlgufac mitral regurgitation. 5. Moderate tricuspid regurgitation with normal estimated PA systolic pressure. 6. No prior echo Findings Left Ventricle: Left ventricle is normal in size. Normal global systolic left ventricular function. EF evaluated by EF (biplane Booth's). The ejection fraction, measured by Simpsons method, is 55 %. EF range is estimated at 52 % - 55 %. Left ventricle wall thickness is normal. There are no regional wall motion abnormalities. Left ventricular diastolic function parameters are normal. Right Ventricle: Normal size right ventricle. Right ventricular systolic function is normal. Left Atrium: The left atrium is normal in size. Right Atrium: The right atrium is normal in size. Mitral Valve: Mild to moderate mitral regurgitation. No mitral valve stenosis. There is mild mitral thickening. There is a small mobile echo noted o the tip of the anterior mitral leaflet most like is chordae. Aortic Valve: The aortic valve is structurally normal and trileaflet. No aortic valve regurgitation. There is no aortic stenosis. Tricuspid Valve: Tricuspid valve leaflets are structurally normal. Moderate tricuspid regurgitation. No tricuspid valve stenosis. Right Ventricular systolic pressure is measured at 29 mmHg. Pulmonary artery pressure normal. Pulmonic Valve: Pulmonic leaflets are structurally normal. No pulmonic valve regurgitation is evident. Aorta: The aortic root size in 2D measures 2.6 cm. The aortic root exhibits normal size. The ascending aorta measures 2.6 cm. Ascending aorta is normal in size. Aorta Measurements AoRoot, 2D is 2.6 cm. Patient: ADA DOTSON Study Date: 08/08/2018 Page 2 of 3 09:44 AM IVC: The inferior vena cava is normal in size and course. Pericardium: No pericardial effusion. Exam Details Procedure Ordered: Echo Procedure Status: Routine study Image Quality: Adequate Facility Location: Cardiac Echo 1 (No Signature Object) Patient: ADA DOTSON Study Date: 08/08/2018 Page 3 of 3 09:44 AM [id number]
--- NOTE | 2018-08-08 12:41 | GCON ---
[f rep st] CONSULTATION DATE OF CONSULTATION: 08/08/2018 CHIEF COMPLAINT: Dizziness and bradycardia. HISTORY OF PRESENT ILLNESS: We were asked by Dr. Gonzales to visit with the patient. The patient is a 33-year-old female with a history of drug abuse, cyclical vomiting, and fibromyalgia. She was admit kayla on August 05 with intractable nausea, vomiting, and abdominal pain. She has required inpatient ma nagement of this. Intermittently on telemetry she has had sinus bradycardia with associated lighthea dedness. She has not had high-degree AV block or syncope. Her history is brief, as the patient seems quite sleepy. She reports that in terms of any cardiac hi story she had "palpitations after an overdose" when she was a teenager, but does not recall the speci fic arrhythmia or treatment for this. She has not had any other known cardiovascular problems. She reports some occasional pleuritic chest pain and that she feels short of breath all the time. No low er extremity edema. ALLERGIES: Haldol. PAST MEDICAL HISTORY: 1. Cyclical vomiting. 2. Marijuana use. 3. GERD. 4. Fibromyalgia. SURGICAL HISTORY: 1. Cholecystectomy. 2. Tubal ligation. 3. Hand surgery. 4. Ankle surgery. OUTPATIENT MEDICATIONS: Zofran and Mobic. SOCIAL HISTORY: The patient intermittently uses marijuana. She smokes cigarettes. I am not sure ab out her alcohol use status. FAMILY HISTORY: Notable for coronary disease and cancer. PHYSICAL EXAM: VITAL SIGNS: Current blood pressure 150/77. Current heart rate 62, the lowest it wilkes s been documented this admission was 36 beats per minute yesterday at 11:43 a.m. Otherwise, it has b een 40s to 60s, as high as 94 around the time of admission. Orthostatic vital signs were negative. 98% on room air. She is afebrile. Respiratory rate is 16. GENERAL: Somnolent, but arousable young female in no acute distress. HEENT: Sclerae and conjunctivae clear of jaundice. Mucous membranes are moist. Normocephalic, atraumatic. CARDIOVASCULAR: JVP is less than 10. Carotids equal and 2+ without bruit. Regular rate and rhythm without murmur, rub, or gallop. LUNGS: Clear to auscultatio n without wheezes, rhonchi, or rales. ABDOMEN: Soft, nontender, nondistended with minimal tendernes s to palpation in the epigastric region. No obvious masses or hepatosplenomegaly. EXTREMITIES: War m and well perfused without cyanosis, clubbing, or edema. NEURO: She is somnolent but arousable. N o gross focal neurologic deficits. LABORATORY/IMAGING: CBC is normal. Sodium 139, potassium 2.4 which has been corrected to 3.8, BUN 1 3, creatinine 0.7, magnesium 1.7. Lipase is high at 756, albumin low at 2.9, alkaline phosphatase 32 , AST and ALT are normal. Total bilirubin is normal. TSH is normal. Beta HCG is negative. Stool c ulture is negative. Stool PCR is negative. Echocardiogram is pending. EKG reviewed by me shows sinus arrhythmia with initially a T-wave inversion in V2. Follow up EKG javier ws normalization of that T-wave. QT is normal. No evidence of pre-excitation or Brugada syndrome. Abdomen Ultrasound: Status post cholecystectomy with no bile duct dilatation. Pancreas appears norm al sonographically. ASSESSMENT AND PLAN: 33-year-old female with cyclic nausea and vomiting that may be exacerbated by h er marijuana use. She also has elevated lipase. She has intermittently had sinus bradycardia with s ome lightheadedness; however, it is not completely clear whether the lightheadedness is directly attr ibutable to her bradycardia as she has not been eating very well. 1. Bradycardia: This appears most likely vasovagal in etiology given her ongoing gastrointestinal i ssues with nausea, vomiting and abdominal pain. No indication for pacemaker. No indication for any cardiac medications at this time. Will review echo when completed. 2. Hypokalemia and hypomagnesemia: Repletion. This is related to poor p.o. and vomiting. 3. Cyclical nausea and vomiting: She needs to stop marijuana per Internal Medicine. Thank you for allowing us to participate in the care of the patient. We will follow with you. /[id number]/MODL
--- NOTE | 2018-08-08 15:24 | HOSPPROG ---
Hospitalist Progress Note Assessment/Plan: DIAGNOSES: * Acute pancreatitis suspect due to alcohol * Suspicion for possible peptic gastropathy with ongoing use of alcohol and meloxicam * Alcohol abuse * Bradycardia, doubtful clinical significance at present may have vagal component * History of recurrent cyclic vomiting syndrome Notably the patient admits drinking alcohol at home lately; in the past she has used enough alcohol that led to her being placed on a Court ordered probation period with strict monitoring. Her gallbladder is out and ultrasound now shows no stones. She has no family history of pancreatitis. Lipase is 700s yesterday not terribly high but suspected was higher at the time of admission Given her meloxicam and alcohol use would also worry about dyspeptic problems. Seen by me on hospitals rounds as well as multidisciplinary rounds today. I reviewed with Dr. Gonzales in detail today as well as with Dr. Gloria Case PLANS: * Continue hydration and symptomatic medicines * Continue off NSAID * Check lipase from day of admission of possible * Added Protonix * Reviewed alcohol is most likely cause of pancreatitis with her, reviewed the nature and treatment of pancreatitis and possible complications * Encourage ambulation * Agree no treatment needed at present for bradycardia * Add thiamine SUBJECTIVE: Still with epigastric pain and nausea, no appetite OBJECTIVE Vitals reviewed: Some mild hypertension otherwise stable without fever (still a bit bradycardic but asymptomatic from that) Exam: alert oriented looks mildly uncomfortable skin warm dry color ok no jaundice resps not labored lungs clear BSs heart regular abd soft nondistended with some epigastric tenderness no rebound or palpable abnormality, bowel sounds present limbs warm, no edema iv site ok Lab data: Lipase yesterday was elevated greater than 700 (after 2 days plus of hospitalization) Potassium magnesium and troponin all normal today TSH normal Objective: Vital Signs Temp Pulse Resp BP Pulse Ox 36.7 C 44 L 18 160/79 H 96 08/08/18 11:34 08/08/18 11:34 08/08/18 11:34 08/08/18 11:34 08/08/18 11:34 Microbiology 08/07/18 13:10 Gastrointestinal Tract Panel (PCR) - Final Stool No Organism Detected By Pcr Laboratory Results 08/08/18 04:37 08/07/18 08/08/18 08/09/18 06:59 06:59 06:59 Intake Total 450 3442 Output Total 30 1 Balance 450 3412 -1 - Time Spent With Patient Time Spent with Patient: greater than 35 minutes Time Spent with Patient: Greater than 35 minutes spent on this patients care, greater than 50% of time spent counseling, educating, and coordinating care regarding the above mentioned plan. ICD10 Worksheet Patient Problems: Problems Problem Status Onset Abdominal pain Acute Vomiting Acute Cyclical vomiting Acute
[2018-08-08] MEDS: ONDANSETRON 4 MG/2 ML VIAL IVP PRN (16:39)
[2018-08-08] MEDS: LORazepam 2 MG/ML INJ IVP PRN ×2 (17:20→21:32)
[2018-08-08] MEDS: POTASSIUM Cl (KCl) 20 MEQ in D5W LR 1,000 ML IV SCH (18:10)
[2018-08-08] MEDS ORDERED: HYDROmorphONE/DILAUDID 1 MG/ML INJ IVP ONE (20:25)
[2018-08-08] MEDS: MELATONIN 3 MG TAB PO SCH (22:11)
[2018-08-08] MEDS: PANTOPRAZOLE SODIUM 40 MG TAB PO SCH (22:11)
[2018-08-09] MEDS ORDERED: HYDROCODONE/APAP 5/325 TAB PO ONE (01:52)
[2018-08-09] MEDS: POTASSIUM Cl (KCl) 20 MEQ in D5W LR 1,000 ML IV SCH ×2 (03:14→12:55)
[2018-08-09] MEDS ORDERED: ATROPINE SULFATE 1 MG/ML VIAL IVP PRN (08:30)
[2018-08-09] MEDS: PANTOPRAZOLE SODIUM 40 MG TAB PO SCH (11:50)
--- NOTE | 2018-08-09 13:31 | HOSPPROG ---
Hospitalist Progress Note Assessment/Plan: DIAGNOSES: * Acute episode cyclic vomiting syndrome with history of repeated episodes in past * Acute pancreatitis, mild, is also present; suspect due to alcohol * Suspicion for possible peptic gastropathy with ongoing use of alcohol and meloxicam * Alcohol abuse * Bradycardia, doubtful clinical significance at present; may have vagal component Notably the patient admits drinking alcohol at home lately; in the past she has used enough alcohol that led to her being placed on a Court ordered probation period with strict monitoring. Her gallbladder is out and ultrasound now shows no stones. She has no family history of pancreatitis. Lipase is 700s yesterday not terribly high but suspected was higher at the time of admission Seen by me on hospitalist rounds as well as multidisciplinary rounds today. PLANS: * Continue hydration * will put antiemetics on a schedule * will add schedule tramadol for now * Continue off NSAID * Continue Protonix * Have asked her to ambulate in hallway today a few times SUBJECTIVE: Continued epigastric pain and nausea, but of which seem to be intermittent in waves Overall a bit better than yest but not tolerating clear liguids has ambulated in room no emesis OBJECTIVE Vitals reviewed: all stable no fever Exam: alert oriented more relaxed skin warm dry color ok no jaundice resps not labored lungs clear BSs heart regular abd soft nondistended with mild subjective epigastric tenderness no rebound or palpable abnormality, bowel sounds present limbs warm, no edema iv site ok Lab data: Lipase down to 300s Potassium magnesium normal today Objective: Vital Signs Temp Pulse Resp BP Pulse Ox 36.6 C 45 L 16 151/89 H 97 08/09/18 12:00 08/09/18 12:00 08/09/18 12:00 08/09/18 12:00 08/09/18 12:00 Laboratory Results 08/09/18 04:22 08/08/18 08/09/18 08/10/18 06:59 06:59 06:59 Intake Total 3442 1645 Output Total 30 1 Balance 3412 1642 ICD10 Worksheet Patient Problems: Problems Problem Status Onset Abdominal pain Acute Vomiting Acute Cyclical vomiting Acute
[2018-08-09] MEDS ORDERED: MAGNESIUM SULF 1 GM/DEXTROSE 100 ML IV ONE (13:32)
--- NOTE | 2018-08-09 16:17 | ASMTCMCOM ---
CM Note CM Note Notes: Patient had a rough night requiring pain meds and Ativan. She continues to need hydration and protonix. Patient is to ambulate in the hallways today. Discharge plan remains home independent when medically ready. CM available if needs arise. Date Signed: 08/09/2018 04:16 PM Electronically Signed By:Nakia Henson LCSW
[2018-08-09] MEDS: traMADol 50 MG TAB PO SCH ×2 (16:49→21:37)
[2018-08-09] MEDS: ONDANSETRON 4 MG/2 ML VIAL IVP SCH ×2 (18:26→21:38)
[2018-08-09] MEDS: PROMETHAZINE HCL 25 MG/ML INJ IVP SCH (18:26)
[2018-08-09] MEDS: MELATONIN 3 MG TAB PO SCH (21:38)
[2018-08-09] MEDS: LORazepam 2 MG/ML INJ IVP PRN (23:06)
[2018-08-10] MEDS: POTASSIUM Cl (KCl) 20 MEQ in D5W LR 1,000 ML IV SCH ×3 (01:51→22:46)
[2018-08-10] MEDS: PROMETHAZINE HCL 25 MG/ML INJ IVP SCH ×4 (01:51→18:19)
[2018-08-10] MEDS: ONDANSETRON 4 MG/2 ML VIAL IVP SCH ×6 (01:51→23:02)
[2018-08-10] MEDS: traMADol 50 MG TAB PO SCH ×4 (05:40→22:47)
[2018-08-10] MEDS ORDERED: MAGNESIUM SULF 1 GM/DEXTROSE 100 ML IV ONE (07:25)
[2018-08-10] MEDS: PANTOPRAZOLE SODIUM 40 MG TAB PO SCH (08:35)
[2018-08-10] MEDS: ACETAMINOPHEN 325 MG TAB PO PRN (12:22)
--- NOTE | 2018-08-10 13:40 | PDCARPN ---
Cardiology Progress Note Assessment/Plan: Assessment/Plan: 33-year-old female with history of marijuana use and alcohol abuse. She was admitted with exacerbation of her cyclic vomiting syndrome. She was hypokalemic. She was intermittently bradycardic with some lightheadedness. She never had complete heart block but did have a few junctional beats. Echocardiogram with normal ejection fraction and mild-to- moderate mitral regurgitation moderate tricuspid regurgitation. She has evidence of pancreatitis as well, likely triggered by alcohol use. Blood pressures been stable. 1. Bradycardia: This is likely vasovagal in the setting of her GI issues. No indication for pacemaker. Continue telemetry while she is in-house. 2. cyclical vomiting: She understands she needs to stop marijuana. Overall symptoms have improved. Electrolytes have been repleted. 3. Pancreatitis and alcohol abuse: She understands that abstinence is important. Lipase is improving. Tolerating clear liquids. 4. Valvular heart disease: [id number] mitral regurgitation and moderate tricuspid regurgitation. No evidence of heart failure symptoms attributable to heart disease. I recommended 1 year echo in clinical follow-up at [facility]. She appears stable from cardiovascular standpoint. Will sign off. Please call with questions or concerns 08/10/18 13:38 Subjective: She reports feeling a lot better. No chest pain or dyspnea. Dizziness has resolved. She is tolerating clear liquids, although she does have a little bit of abdominal pain and diarrhea after ingesting the clear liquids. Objective: Vital Signs (8 Hrs) Temp Pulse Resp BP Pulse Ox 08/10/18 07:33 36.6 C 44 L 14 135/86 H 95 Intake/Output (24 Hrs) 08/09/18 08/10/18 08/11/18 05:59 05:59 05:59 Intake Total 1645 400 Output Total 1 Balance 1644 400 Intake: Oral (ml) 300 400 IV Infused (ml) 1345 POTASSIUM Cl (KCl) 20 meq 1345 In D5w Lr 1,000 ml @ 100 mls/hr IV CONT THIERRY Rx#: [id number] Output: Urine (ml) 1 Toilet 1 Other: Number of Voids Toilet 1 5 Number of Stools Toilet 1 No acute distress. Regular rate and rhythm without murmur or gallop Lungs clear bilaterally wheeze rhonchi rales No lower extremity edema Result Diagrams: 08/06/18 04:35 08/10/18 04:36 Cardiac Labs: Cardiac Lab Results (72 Hrs) 08/08/18 10:45 Troponin I < 0.012 Telemetry: Sinus rhythm and sinus bradycardia. On August 07 she did have a few junctional beats. ICD10 Worksheet Patient Problems: Problems Problem Status Onset Cyclical vomiting Acute Abdominal pain Acute Vomiting Acute
--- NOTE | 2018-08-10 15:06 | ASMTCAGE ---
CAGE Do you feel you ought to Answers: Yes cut down on your drinking or drug use? Do people annoy you by Answers: No criticizing your drinking or drug use? Do you feel guilty about Answers: No your drinking or drug use? Do you drink or use drugs Answers: No first thing in the morning ([employer])? Additional Comments Pt states that she is drinking less than usual because she is receiving treatment at [facility] Date Signed: 08/10/2018 03:05 PM Electronically Signed By:Libra Julian
--- NOTE | 2018-08-10 15:09 | ASMTCMCOM ---
CM Note CM Note Notes: CM met with pt in her room to conduct CAGE questionnaire. Pt states that she drinks less than usual now because she is in treatment at [facility]. She had a cardiology consult today that showed no cardiological concerns. No therapies have been ordered. Pt lives at home with friends. Pt is continuing to improve from her pancreatitis. [facility] D/C plan: Independent to home Date Signed: 08/10/2018 03:08 PM Electronically Signed By:Libra Julian
[2018-08-10] MEDS: LOPERAMIDE HCL 2 MG CAP PO PRN (15:58)
--- NOTE | 2018-08-10 16:00 | HOSPPROG ---
Hospitalist Progress Note Assessment/Plan: DIAGNOSES: * Acute episode cyclic vomiting syndrome with history of repeated episodes in past * Acute pancreatitis, mild, is also present; suspect due to alcohol * Suspicion for possible peptic gastropathy with ongoing use of alcohol and meloxicam * Alcohol abuse * Bradycardia, doubtful clinical significance at present; may have vagal component Notably the patient admits drinking alcohol at home lately; in the past she has used enough alcohol that led to her being placed on a Court ordered probation period with strict monitoring. Her gallbladder is out and ultrasound now shows no stones. She has no family history of pancreatitis. Seen by me on hospitalist rounds as well as multidisciplinary rounds today. PLANS: * Trial of solid food * Continue hydration * Continue schedule antiemetics for now * Continue schedule tramadol for now * Continue off NSAID * Continue Protonix * Continue increasing activity * Possibly home tomorrow if tolerating diet well SUBJECTIVE: Overall feeling a fair bit better today and tolerating clear liquids better, feels hungry to try some solid food though appetite not significant No vomiting nausea much better controlled on scheduled medicines of which she is receiving both Zofran and Phenergan No fever symptoms OBJECTIVE Vitals reviewed: all stable no fever Exam: alert oriented more relaxed skin warm dry color ok no jaundice resps not labored lungs clear BSs heart regular abd soft nondistended with no tenderness at present limbs warm, no edema iv site ok Lab data: Electrolytes good sugar good Objective: Vital Signs Temp Pulse Resp BP Pulse Ox 36.6 C 44 L 14 135/86 H 95 08/10/18 07:33 08/10/18 07:33 08/10/18 07:33 08/10/18 07:33 08/10/18 07:33 Laboratory Results 08/10/18 04:36 08/09/18 08/10/18 08/11/18 06:59 06:59 06:59 Intake Total 1645 400 Output Total 1 Balance 1644 400 ICD10 Worksheet Patient Problems: Problems Problem Status Onset Abdominal pain Acute Vomiting Acute Cyclical vomiting Acute
[2018-08-10] MEDS ORDERED: POTASSIUM CL 10 MEQ TAB PO ONE (21:46)
[2018-08-10] MEDS: LORazepam 2 MG/ML INJ IVP PRN (22:47)
[2018-08-10] MEDS: MELATONIN 3 MG TAB PO SCH (22:47)
[2018-08-11] MEDS: PROMETHAZINE HCL 25 MG/ML INJ IVP SCH ×2 (00:58→05:44)
[2018-08-11] MEDS: ONDANSETRON 4 MG/2 ML VIAL IVP SCH ×3 (01:59→09:49)
[2018-08-11] MEDS: traMADol 50 MG TAB PO SCH ×2 (05:45→09:49)
[2018-08-11 08:45] VITALS: BP 113/70
[2018-08-11] MEDS: PANTOPRAZOLE SODIUM 40 MG TAB PO SCH (09:49)
--- NOTE | 2018-08-11 09:58 | PDDCSUM ---
Discharge Summary Discharge Summary: DISCHARGE DIAGNOSES: * Acute exacerbation of cyclic vomiting syndrome * Acute pancreatitis, alcohol-induced * Alcohol abuse * Suspected NSAID gastropathy * Chronic back pain PROCEDURES: Abdominal ultrasound which was unrevealing for any abnormalities HOSPITAL COURSE SUMMARY: This patient has a long history of recurrent cyclic vomiting syndrome came in with abdominal pain and vomiting. Her clinical syndrome was most consistent with cyclic vomiting syndrome exacerbation and she does have significant stressors. There was primarily pain and vomiting with bed nausea that was intractable. However additionally she did have a very mild increase in lipase. Gallbladder showed no stones. In addition she had been using meloxicam and is suspected she might have had some NSAID gastropathy. The patient was started on IV hydration scheduled antiemetics and small doses of analgesics. Her symptoms were slowed resolved have resolved very nicely at this point. She is now eating a regular diet up walking in the hallway, no fever, benign abdominal exam. It is notable that the patient had been drinking alcohol at home on a nightly basis. In the past she has had significant alcoholism and in fact has been in the past on a court ordered probation for a year not allowed to drink any alcohol with regular check ins. She was counseled on the role of alcohol in the aggravating cyclic vomiting, causing pancreatitis, and aggravating any gastropathy. In addition she is counseled on the dangers of sipping back to dangers alcoholism again. Is recommended that she seek help either through a, counseling, or other resources in the community and she is given a list. PENDING TEST RESULTS: None new line MEDICATION CHANGES: Zofran and Phenergan are prescribed for p.r.n. Use for nausea at home Number 25 tablets of tramadol 50 mg for PN use for pain Protonix for dyspepsia, question of nonsteroidal induced gastropathy FOLLOW-UP PLAN: With primary care clinic within 2 weeks Greater than 35 minutes bedside and care coordination time today
[2018-08-11] MEDS ORDERED: MAGNESIUM SULF 1 GM/DEXTROSE 100 ML IV ONE (10:56)
== END 2018-08-11 11:53 | disposition home or self-care (01) | DRG 54 ==
LOC: EDUNIT# → F1N 08-06 00:11 → OBSVTOIN 08-06 13:55
PROVIDERS: ADMIT Student in an Organized Health Care Education/Training Program; ATTEND Student in an Organized Health Care Education/Training Program
DX: G43.A0 Cyclical vomiting, in migraine, not intractable (principal); K85.20 Alcohol induced acute pancreatitis without necrosis or infection; E83.42 Hypomagnesemia; E86.9 Volume depletion, unspecified; F10.288 Alcohol dependence with other alcohol-induced disorder; G89.29 Other chronic pain; K21.9 Gastro-esophageal reflux disease without esophagitis; F12.90 Cannabis use, unspecified, uncomplicated; K31.89 Other diseases of stomach and duodenum; T39.395A Adverse effect of other nonsteroidal anti-inflammatory drugs [NSAID], initial encounter; M79.7 Fibromyalgia; E87.6 Hypokalemia; Z72.0 Tobacco use; R00.1 Bradycardia, unspecified
CPT/HCPCS: 96374; G0378; J0461; J1170; J1200; J2060; J2405; J2550; J3475; J3480

== ENCOUNTER 2018-08-26 08:37 | Emergency (ER) | payer MEDICAID | END 2018-08-26 10:47 | disposition home or self-care (01) ==